=== PATIENT | female | born 1930 | race African-American/Black ===

== ENCOUNTER 2018-12-05 20:30 | Emergency (ER) | payer SELFPAY ==
[~2018-12-05] VITALS: Ht 182.9 cm; Wt 68.0 kg
--- NOTE | 2018-12-05 20:59 | NUR ---
ED Nurse Note: pt walked in c/o pain in back and weakness, pt states she took some muscle relaxant with motrin and helped pain and it went away but came back, pt states she's been having for a while. pt AA&ox4, skin warm and dry, resp even and unlabored on RA, -n/v/d, ambulates w/ steady gait. vss.
[2018-12-05 21:01] VITALS: BP 120/85
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
[2018-12-05 21:30] LABS: BASOPHILS % (AUTO) 0.8 % (0.0-2.0); EOSINOPHILS % (AUTO) 1.5 % (0.0-3.0); HEMATOCRIT 36.8 % (37.0-47.0); HEMOGLOBIN 12.7 G/DL (12.0-16.0); LYMPHOCYTES % (AUTO) 28.3 % (20.0-45.0); MEAN CORPUSCULAR VOLUME 98 FL (80-99); MONOCYTES % (AUTO) 7.4 % (1.0-10.0); PLATELET COUNT 229 K/UL (150-450); RED BLOOD COUNT 3.74 M/UL (4.20-5.40); RED CELL DISTRIBUTION WIDTH 11.7 % (11.6-14.8)
[2018-12-05 21:42] LABS: ANION GAP 5 mmol/L (5-15); BLOOD UREA NITROGEN 10 mg/dL (7-18); CALCIUM 9.2 MG/DL (8.5-10.1); CARBON DIOXIDE 31 MMOL/L (21-32); CHLORIDE 101 MMOL/L (98-107); CREATININE 0.9 MG/DL (0.55-1.30); POTASSIUM 3.8 MMOL/L (3.5-5.1); SODIUM 137 MMOL/L (136-145)
--- NOTE | 2018-12-05 21:48 | Diagnostic Imaging Report ---
EXAM: XR Chest, 1 View CLINICAL HISTORY: PAIN TECHNIQUE: Frontal view of the chest. COMPARISON: none FINDINGS: Lungs: Unremarkable. No consolidation. Pleural space: Unremarkable. No pneumothorax. Heart: Unremarkable. No cardiomegaly. Mediastinum: Unremarkable. Bones/joints: Unremarkable. IMPRESSION: Normal chest x-ray.
[2018-12-05 21:57] LABS: ALANINE AMINOTRANSFERASE 19 U/L (12-78); ALBUMIN 3.6 G/DL (3.4-5.0); ALBUMIN/GLOBULIN RATIO 0.9 (1.0-2.7); ALKALINE PHOSPHATASE 99 U/L (46-116); ASPARTATE AMINO TRANSFERASE 14 U/L (15-37); BILIRUBIN,TOTAL 0.5 MG/DL (0.2-1.0); CKMB 1.1 NG/ML (0.0-3.6); CREATINE KINASE 110 U/L (26-308)
[2018-12-05] MEDS ORDERED: IBUPROFEN600 MG ORAL (22:49)
[2018-12-05] MEDS ORDERED: NORCO 5-325 TA1 EACH ORAL (22:49)
[2018-12-05] MEDS ORDERED: CYCLOBENZAPRINE10 MG ORAL (22:49)
[2018-12-05] MEDS ORDERED: Morphine Sulfate 2mg/ml Inj(IV/IM USE ONLY) ONE (22:50)
[2018-12-05] MEDS ORDERED: LIDODERM700 M1 TOPIC (22:51)
[2018-12-05 22:55] VITALS: BP 128/67
[2018-12-05] MEDS ORDERED: Morphine Sulfate 2mg/ml Inj(IV/IM USE ONLY) IVP ONE (23:00)
--- NOTE | 2018-12-05 23:04 | NUR ---
ED Nurse Note: iv d/c after administration of medication. pt is cleared to be d/c per ERMD, d/c endorsed to VIVIANE lboo for possible reaction of medication.
[2018-12-05 23:33] VITALS: BP 115/67
--- NOTE | 2018-12-05 23:33 | NUR ---
ED Nurse Note: Pt cleared by MD. Gandhi, ambulatory with steady gait. Discharge paperwork and prescriptions provided. Pt verbalized understanding of all instructions. ID and IV band removed. All belongings were taken with patient.
== END 2018-12-05 23:33 | disposition home or self-care (01) ==
LOC: EMR 21:18
DX: R07.9 Chest pain, unspecified (principal); M54.9 Dorsalgia, unspecified; J45.909 Unspecified asthma, uncomplicated
CPT/HCPCS: 36415; 71045; 80053; 82550; 82553; 84484; 85025; 93005; 96374; 96375; 99284; J2270; J2405

== ENCOUNTER 2018-12-09 09:41 | Inpatient (IN) | payer MEDICAID ==
[~2018-12-09] VITALS: Ht 182.9 cm; Wt 71.7 kg
[2018-12-09] VITALS (7 sets, daily range): BP systolic 110–142; BP diastolic 60–79
[~2018-12-09 09:41] MED LIST: CYCLOBENZAPRINE10 MG ORAL; IBUPROFEN600 MG ORAL; LIDODERM700 M1 TOPIC; NORCO 5-325 TA1 EACH ORAL
--- NOTE | 2018-12-09 10:02 | NUR ---
ED Nurse Note: Pt came into the ER w/ complaints of right flank pain x 1 week. Pt is rating the pain a 2/10 right now not radiating. Pt stated that she took motrin to ease her pain. Pt is A + O x4. Ambulatory. Skin warm to touch.
--- NOTE | 2018-12-09 10:17 | Emergency Room Report ---
History of Present Illness General Chief Complaint: Pain Source: Patient Present Illness HPI Patient is a -[place] female brought in by self after increased right- sided flank pain. She reports having increased pain to right flank worse after coughing. She reports having intermittent spasms. She had reportedly been coughing up trace amounts of blood. Patient reports being a smoker. She states she smokes 2 cigars a day. She reports having multiple episodes of trace hemoptysis. Allergies: Coded Allergies: MORPHINE (Verified Allergy, Unknown, 12/09/18) Patient History Past Medical History: see triage record Reviewed Nursing Documentation: PMH: Agreed; PSxH: Agreed Nursing Documentation-PM Past Medical History: No History, Except For Hx Asthma: Yes Review of Systems All Other Systems: negative except mentioned in HPI Physical Exam Vital Signs Date Time Temp Pulse Resp B/P (MAP) Pulse Ox O2 Delivery O2 Flow Rate FiO2 12/09/18 09:47 98.8 82 18 113/69 93 Room Air Sp02 EP Interpretation: reviewed, normal General Appearance: normal inspection, well appearing, no apparent distress, alert, GCS 15 Head: atraumatic ENT: normal ENT inspection, hearing grossly normal, normal voice Neck: normal inspection, full range of motion, supple, no bony tend Respiratory: normal inspection, lungs clear, normal breath sounds, no respiratory distress, no retraction, no wheezing Cardiovascular #1: regular rate, rhythm, no edema Gastrointestinal: normal inspection, normal bowel sounds, non tender, soft, no guarding, no hernia Genitourinary: no CVA tenderness Musculoskeletal: normal inspection, back normal, normal range of motion Neurologic: normal inspection, alert, oriented x3, responsive, precision instrument maker III-XII nml as tested, speech normal Psychiatric: normal inspection, judgement/insight normal, mood/affect normal Skin: normal inspection, normal color, no rash Medical Decision Making Diagnostic Impression: Primary Impression: Bilateral pulmonary embolism Additional Impression: Urinary tract infection ER Course Patient presented for right flank pain and hemoptysis. Differential diagnosis include was not limited to pneumonia, bronchitis, pulmonary embolism, Kinsey's granulomatosis among others. Because of complexity of patient's case laboratory testing and imaging studies were ordered. Laboratory testing was notable for negative troponin. Patient's EKG interpreted by me showed normal sinus rhythm with a rate of [address] or T wave changes. Patient's urinalysis showed evidence of urinary infection. CTA of the chest read by radiology was ordered to patient's hemoptysis. CT showed multiple subsegmental pulmonary embolisms as well as right lower lobe atelectasis. Patient was started on IV anti-biotics as well as given IV heparin. Patient initially presented registering with an age approximately 80 years age. patient's age and Social Security number not consistent with her current age and Social Security number. Patient had similar visit one day prior to arrival. Dr. Al Rosario was contacted for inpatient management due to panel physician Labs Test 12/09/18 10:25 12/09/18 12:05 White Blood Count 8.4 K/UL (4.8-10.8) Red Blood Count 3.76 M/UL (4.20-5.40) Hemoglobin 12.9 G/DL (12.0-16.0) Hematocrit 37.1 % (37.0-47.0) Mean Corpuscular Volume 99 FL (80-99) Mean Corpuscular Hemoglobin 34.3 PG (27.0-31.0) Mean Corpuscular Hemoglobin Concent 34.8 G/DL (32.0-36.0) Red Cell Distribution Width 11.5 % (11.6-14.8) Platelet Count 270 K/UL (150-450) Mean Platelet Volume 5.1 FL (6.5-10.1) Neutrophils (%) (Auto) 60.1 % (45.0-75.0) Lymphocytes (%) (Auto) 29.4 % (20.0-45.0) Monocytes (%) (Auto) 8.4 % (1.0-10.0) Eosinophils (%) (Auto) 1.3 % (0.0-3.0) Basophils (%) (Auto) 0.8 % (0.0-2.0) Urine Color Yellow Urine Appearance Slightly cloudy Urine pH 6 (4.5-8.0) Urine Specific [place] 1.020 (1.005-1.035) Urine Protein 2+ (NEGATIVE) Urine Glucose (UA) Negative (NEGATIVE) Urine Ketones Negative (NEGATIVE) Urine Blood 2+ (NEGATIVE) Urine Nitrite Negative (NEGATIVE) Urine Bilirubin Negative (NEGATIVE) Urine Urobilinogen 8 MG/DL (0.0-1.0) Urine Leukocyte Esterase 2+ (NEGATIVE) Urine RBC 10-15 /HPF (0 - 2) Urine WBC 20-30 /HPF (0 - 2) Urine Squamous Epithelial Cells Many /LPF (NONE/OCC) Urine Bacteria Few /HPF (NONE) Urine Mucus Many /LPF (NONE/OCC) Sodium Level 137 MMOL/L (136-145) Potassium Level 4.3 MMOL/L (3.5-5.1) Chloride Level 101 MMOL/L (98-107) Carbon Dioxide Level 33 MMOL/L (21-32) Anion Gap 3 mmol/L (5-15) Blood Urea Nitrogen 7 mg/dL (7-18) Creatinine 0.8 MG/DL (0.55-1.30) Estimat Glomerular Filtration Rate mL/min (>60) Glucose Level 85 MG/DL (74-106) Calcium Level 9.4 MG/DL (8.5-10.1) Total Bilirubin 0.3 MG/DL (0.2-1.0) Aspartate Amino Transf (AST/SGOT) 11 U/L (15-37) Alanine Aminotransferase (ALT/SGPT) 16 U/L (12-78) Alkaline Phosphatase 88 U/L (46-116) Total Protein 8.2 G/DL (6.4-8.2) Albumin 3.3 G/DL (3.4-5.0) Globulin 4.9 g/dL Albumin/Globulin Ratio 0.7 (1.0-2.7) Urine Opiates Screen Negative (NEGATIVE) Urine Barbiturates Screen Negative (NEGATIVE) Phencyclidine (PCP) Screen Negative (NEGATIVE) Urine Amphetamines Screen Negative (NEGATIVE) Urine Benzodiazepines Screen Negative (NEGATIVE) Urine Cocaine Screen Negative (NEGATIVE) Urine Marijuana (THC) Screen Positive (NEGATIVE) Activated Partial Thromboplast Time 29 SEC (23-33) EKG Diagnostic Results Rate: normal Rhythm: NSR ST Segments: no acute changes Last Vital Signs Date Time Temp Pulse Resp B/P (MAP) Pulse Ox O2 Delivery O2 Flow Rate FiO2 12/09/18 10:04 98.7 78 16 119/79 99 Room Air Status: unchanged Disposition: ADMITTED INPATIENT Asaf High MD Dec 09, 2018 10:17
[2018-12-09] MEDS ORDERED: Isovue-370 150ml vial INJ PRN (10:30)
[2018-12-09 10:40] LABS: APPEARANCE,URINE SLIGHTLY CLOUDY; BILIRUBIN, URINE NEGATIVE (NEGATIVE); COLOR,URINE YELLOW; GLUCOSE, URINE (UA) NEGATIVE (NEGATIVE); KETONES,URINE NEGATIVE (NEGATIVE); LEUKOCYTE ESTERASE ,URINE 2+ (NEGATIVE); NITRITE,URINE NEGATIVE (NEGATIVE); PH,URINE 6 (4.5-8.0); PROTEIN,URINE 2+ (NEGATIVE); UROBILINOGEN,URINE 8 MG/DL (0.0-1.0)
[2018-12-09 10:42] LABS: ANION GAP 3 mmol/L (5-15); BLOOD UREA NITROGEN 7 mg/dL (7-18); CALCIUM 9.4 MG/DL (8.5-10.1); CARBON DIOXIDE 33 MMOL/L (21-32); CHLORIDE 101 MMOL/L (98-107); CREATININE 0.8 MG/DL (0.55-1.30); POTASSIUM 4.3 MMOL/L (3.5-5.1); SODIUM 137 MMOL/L (136-145)
[2018-12-09 10:48] LABS: ALANINE AMINOTRANSFERASE 16 U/L (12-78); ALBUMIN 3.3 G/DL (3.4-5.0); ALBUMIN/GLOBULIN RATIO 0.7 (1.0-2.7); ALKALINE PHOSPHATASE 88 U/L (46-116); ASPARTATE AMINO TRANSFERASE 11 U/L (15-37); BILIRUBIN,TOTAL 0.3 MG/DL (0.2-1.0)
[2018-12-09 10:52] LABS: BASOPHILS % (AUTO) 0.8 % (0.0-2.0); EOSINOPHILS % (AUTO) 1.3 % (0.0-3.0); HEMATOCRIT 37.1 % (37.0-47.0); HEMOGLOBIN 12.9 G/DL (12.0-16.0); LYMPHOCYTES % (AUTO) 29.4 % (20.0-45.0); MEAN CORPUSCULAR VOLUME 99 FL (80-99); MONOCYTES % (AUTO) 8.4 % (1.0-10.0); NEUTROPHILS % (AUTO) 60.1 % (45.0-75.0); PLATELET COUNT 270 K/UL (150-450); RED BLOOD COUNT 3.76 M/UL (4.20-5.40); RED CELL DISTRIBUTION WIDTH 11.5 % (11.6-14.8); WHITE BLOOD COUNT 8.4 K/UL (4.8-10.8)
--- NOTE | 2018-12-09 10:54 | NUR ---
ED Nurse Note: Notified CT of order.
--- NOTE | 2018-12-09 10:56 | NUR ---
ED Nurse Note: Pt went down to CT.
[2018-12-09] MEDS ORDERED: cefTRIAXone 1 GM in NS 55 ML IVPB ONE (11:15)
--- NOTE | 2018-12-09 11:18 | NUR ---
ED Nurse Note: Pt back from CT.
[2018-12-09] MEDS ORDERED: Heparin 25,000u/D5W 500ml 500 ML IV SCH ×2 (12:00→19:45)
[2018-12-09] MEDS ORDERED: Heparin 5000 units/ml inj IV ONE (12:00)
--- NOTE | 2018-12-09 12:03 | Diagnostic Imaging Report ---
Indication: Chest pain Technique: Continuous helical transaxial imaging of the chest was obtained from the thoracic inlet to the upper abdomen during rapid intravenous contrast administration. Arterial phase of enhancement obtained. Coronal 2-D reformats were also obtained and maximum intensity projection images in multiple planes. Study obtained in a Siemens sensation [address] Automatic Exposure Control was utilized. Total Dose length Product (DLP): [address] Dose Index Volume (CTDIvol): 12.62, 25.25, 18.92, 0.17 mGy Comparison: None Findings: There is good opacification of the pulmonary artery. There are multiple filling defects present bilaterally mainly at the segmental and subsegmental levels. In the right lower lobe branch bifurcation there is thrombus extending into the right lower lobe segmental branches. There are also filling defects involving the lingular branch of the left pulmonary artery and right upper lobe branches of the pulmonary artery. The aorta appears normal. The heart is unremarkable. No pleural or pericardial effusion identified. There is a ill-defined right basilar infiltrate versus atelectasis. Pulmonary infarct not excluded. Mild paraseptal blebs demonstrated at the periphery of the upper lobes bilaterally. The visualized part of the upper abdomen is unremarkable. IMPRESSION: Positive study showing bilateral pulmonary emboli as described above. Patchy infiltrate versus atelectasis versus infarct involving the right peripheral lung base. Chronic lung disease with paraseptal bleb formation at the periphery of the upper lobes. Critical value communication. Findings were discussed via telephone with Dr. High in the emergency department 11:55 AM, 12/09/2018. The CT scanner at [facility] is accredited by the [employer] and the scans are performed using dose optimization techniques as appropriate to a performed exam including Automatic Exposure control.
--- NOTE | 2018-12-09 15:01 | NUR ---
ED Nurse Note: Tried giving report, RN Fe stated that they are not ready to receive pt.
--- NOTE | 2018-12-09 15:35 | NUR ---
BED ASSIGNED AT 1345 FOR PATIENT TO GO TO ROOM AT 1430 . BUT PER FE RN THEY CANOT TAKE PATIENT DUE TO NO STAFF AVILABLE WILL CALL BACK WHEN THEY ARE AVILABLE TO TAKE REPORT
--- NOTE | 2018-12-09 15:41 | NUR ---
ED Nurse Note: Gave telephone report to VIVIANE Walker.
--- NOTE | 2018-12-09 15:43 | NUR ---
ED Nurse Note: Pt transferred up to tele unit. No acute distress noted. Left ER w/ all belongings.
--- NOTE | 2018-12-09 17:57 | NUR ---
ADMITTING NOTES: Pt arrive to the unit from ED, pt states she lives in her car. Pt was complaining of breathing problems, SOB, Pt is Ox4 cooperative, pt seems to have psychiatric, see things that are not there, pt has cell phone and cisco network engineer with her, (Iphone 6 black with purple case with cisco network engineer, pt belongings with her, pt has #$33. pt states she will keep her medications with her (IBU 600mg, methocarbomol 750mg, Cephalexin 500mg, cyclobenzaprine 10mg, norco 10/325, albuteral, and oseltanir 75mg), Charge nurse notified. [facility] was called and provided admission orders, to consult Denise,
--- NOTE | 2018-12-09 19:05 | NUR ---
HAND-OFF: Report given to Mayra Costa.
--- NOTE | 2018-12-09 19:05 | NUR ---
NURSE NOTES: Received report from Joe De Jesus RN. Patient is awake in bed, A/O x4. No s/s of acute distress at this time. Saturating well on room air. Left AC 20g IV intact and patent, running heparin drip. Bed locked in lowest position with side rails up x2. Call light left within reach. Will continue to monitor.
--- NOTE | 2018-12-09 19:25 | NUR ---
NURSE NOTES: Received new order from Dr. Nadia MD regarding heparin drip - pharmacy to dose. Noted and carried out.
[2018-12-09] MEDS ORDERED: Heparin 5000 units/ml inj IV SCH (20:00)
[2018-12-09] MEDS ORDERED: Albuterol/Ipratropium 3ml neb HHN PRN (21:45)
--- NOTE | 2018-12-09 23:10 | NUR ---
NURSE NOTES: Dr. Charlotte MD made aware of current d-dimer and ABG results. No new orders at this time.
[2018-12-10] VITALS: BP 115/72
[2018-12-10] MEDS ORDERED: Heparin 25,000u/D5W 500ml 500 ML IV SCH ×2 (02:30→09:34)
--- NOTE | 2018-12-10 02:47 | NUR ---
NURSE NOTES: Reported timed ptt 105 to [place] pharmacistPatricia. New order received. Noted and carried out.
[2018-12-10 04:00] VITALS: BP 113/72
[2018-12-10 05:46] LABS: BASOPHILS % (AUTO) 0.5 % (0.0-2.0); EOSINOPHILS % (AUTO) 2.3 % (0.0-3.0); HEMATOCRIT 38.6 % (37.0-47.0); HEMOGLOBIN 13.2 G/DL (12.0-16.0); LYMPHOCYTES % (AUTO) 49.8 % (20.0-45.0); MEAN CORPUSCULAR VOLUME 100 FL (80-99); MONOCYTES % (AUTO) 5.2 % (1.0-10.0); NEUTROPHILS % (AUTO) 42.1 % (45.0-75.0); PLATELET COUNT 272 K/UL (150-450); RED BLOOD COUNT 3.85 M/UL (4.20-5.40); RED CELL DISTRIBUTION WIDTH 11.7 % (11.6-14.8); WHITE BLOOD COUNT 8.1 K/UL (4.8-10.8)
[2018-12-10 06:06] LABS: ALANINE AMINOTRANSFERASE 17 U/L (12-78); ALBUMIN 3.2 G/DL (3.4-5.0); ALBUMIN/GLOBULIN RATIO 0.7 (1.0-2.7); ALKALINE PHOSPHATASE 83 U/L (46-116); ANION GAP 7 mmol/L (5-15); ASPARTATE AMINO TRANSFERASE 18 U/L (15-37); BILIRUBIN,TOTAL 0.3 MG/DL (0.2-1.0); BLOOD UREA NITROGEN 6 mg/dL (7-18); CALCIUM 9.5 MG/DL (8.5-10.1); CARBON DIOXIDE 29 MMOL/L (21-32); CHLORIDE 102 MMOL/L (98-107); CREATININE 0.8 MG/DL (0.55-1.30); POTASSIUM 3.7 MMOL/L (3.5-5.1); SODIUM 138 MMOL/L (136-145)
--- NOTE | 2018-12-10 06:51 | Cardiac Electrophysiology PN ---
Subjective Subjective [id number] Objective Last 24 Hour Vital Signs Date Time Temp Pulse Resp B/P (MAP) Pulse Ox O2 Delivery O2 Flow Rate FiO2 12/10/18 04:00 98.9 57 19 113/72 (86) 92 12/10/18 03:30 78 12/10/18 00:00 98.9 67 19 115/72 (86) 92 12/09/18 23:34 63 12/09/18 21:00 Room Air 12/09/18 20:00 99.2 66 19 114/70 (85) 94 12/09/18 19:24 75 12/09/18 17:55 98.2 72 18 142/70 (94) 98 72 12/09/18 16:17 Room Air 12/09/18 16:00 98.2 72 18 142/70 (94) 98 72 12/09/18 15:42 98.1 73 27 110/60 97 Room Air 12/09/18 15:03 98.3 77 22 110/65 97 Room Air 12/09/18 13:00 98.3 69 18 110/60 96 Room Air 12/09/18 12:00 98.5 75 20 110/70 99 Room Air 12/09/18 10:04 98.7 78 16 119/79 99 Room Air 12/09/18 09:47 98.8 82 18 113/69 93 Room Air Intake and Output 12/09/18 12/10/18 19:00 07:00 Intake Total 550 ml 442.34183 ml Balance 550 ml 442.52874 ml Intake Oral 500 ml 240 ml IV Total 50 ml 202.91885 ml # Voids 2 3 Laboratory Tests Test 12/09/18 10:25 12/09/18 12:05 12/09/18 19:15 12/09/18 22:10 White Blood Count 8.4 K/UL (4.8-10.8) Red Blood Count 3.76 M/UL (4.20-5.40) L Hemoglobin 12.9 G/DL (12.0-16.0) Hematocrit 37.1 % (37.0-47.0) Mean Corpuscular Volume 99 FL (80-99) Mean Corpuscular Hemoglobin 34.3 PG (27.0-31.0) H Mean Corpuscular Hemoglobin Concent 34.8 G/DL (32.0-36.0) Red Cell Distribution Width 11.5 % (11.6-14.8) L Platelet Count 270 K/UL (150-450) Mean Platelet Volume 5.1 FL (6.5-10.1) L Neutrophils (%) (Auto) 60.1 % (45.0-75.0) Lymphocytes (%) (Auto) 29.4 % (20.0-45.0) Monocytes (%) (Auto) 8.4 % (1.0-10.0) Eosinophils (%) (Auto) 1.3 % (0.0-3.0) Basophils (%) (Auto) 0.8 % (0.0-2.0) Urine Color Yellow Urine Appearance Slightly cloudy Urine pH 6 (4.5-8.0) Urine Specific [place] 1.020 (1.005-1.035) Urine Protein 2+ (NEGATIVE) H Urine Glucose (UA) Negative (NEGATIVE) Urine Ketones Negative (NEGATIVE) Urine Blood 2+ (NEGATIVE) H Urine Nitrite Negative (NEGATIVE) Urine Bilirubin Negative (NEGATIVE) Urine Urobilinogen 8 MG/DL (0.0-1.0) H Urine Leukocyte Esterase 2+ (NEGATIVE) H Urine RBC 10-15 /HPF (0 - 2) H Urine WBC 20-30 /HPF (0 - 2) H Urine Squamous Epithelial Cells Many /LPF (NONE/OCC) H Urine Bacteria Few /HPF (NONE) Urine Mucus Many /LPF (NONE/OCC) H Sodium Level 137 MMOL/L (136-145) Potassium Level 4.3 MMOL/L (3.5-5.1) Chloride Level 101 MMOL/L (98-107) Carbon Dioxide Level 33 MMOL/L (21-32) H Anion Gap 3 mmol/L (5-15) L Blood Urea Nitrogen 7 mg/dL (7-18) Creatinine 0.8 MG/DL (0.55-1.30) Estimat Glomerular Filtration Rate mL/min (>60) Glucose Level 85 MG/DL (74-106) Calcium Level 9.4 MG/DL (8.5-10.1) Total Bilirubin 0.3 MG/DL (0.2-1.0) Aspartate Amino Transf (AST/SGOT) 11 U/L (15-37) L Alanine Aminotransferase (ALT/SGPT) 16 U/L (12-78) Alkaline Phosphatase 88 U/L (46-116) Total Protein 8.2 G/DL (6.4-8.2) Albumin 3.3 G/DL (3.4-5.0) L Globulin 4.9 g/dL Albumin/Globulin Ratio 0.7 (1.0-2.7) L Urine Opiates Screen Negative (NEGATIVE) Urine Barbiturates Screen Negative (NEGATIVE) Phencyclidine (PCP) Screen Negative (NEGATIVE) Urine Amphetamines Screen Negative (NEGATIVE) Urine Benzodiazepines Screen Negative (NEGATIVE) Urine Cocaine Screen Negative (NEGATIVE) Urine Marijuana (THC) Screen Positive (NEGATIVE) H Activated Partial Thromboplast Time 29 SEC (23-33) 43 SEC (23-33) H D-Dimer 3.91 mg/L FEU (0.00-0.49) H Troponin I 0.000 ng/mL (0.000-0.056) Test 12/09/18 22:49 12/10/18 01:50 12/10/18 04:00 Arterial Blood pH 7.452 (7.350-7.450) Arterial Blood Partial Pressure CO2 41.8 mmHg (35.0-45.0) Arterial Blood Partial Pressure O2 67.4 mmHg (75.0-100.0) L Arterial Blood HCO3 28.5 mmol/L (22.0-26.0) H Arterial Blood Oxygen Saturation 93.1 % (95-100) L Arterial Blood Base Excess 4.2 (-2-2) H Jovani Test Positive Activated Partial Thromboplast Time 105 SEC (23-33) H White Blood Count 8.1 K/UL (4.8-10.8) Red Blood Count 3.85 M/UL (4.20-5.40) L Hemoglobin 13.2 G/DL (12.0-16.0) Hematocrit 38.6 % (37.0-47.0) Mean Corpuscular Volume 100 FL (80-99) H Mean Corpuscular Hemoglobin 34.4 PG (27.0-31.0) H Mean Corpuscular Hemoglobin Concent 34.2 G/DL (32.0-36.0) Red Cell Distribution Width 11.7 % (11.6-14.8) Platelet Count 272 K/UL (150-450) Mean Platelet Volume 4.0 FL (6.5-10.1) L Neutrophils (%) (Auto) 42.1 % (45.0-75.0) L Lymphocytes (%) (Auto) 49.8 % (20.0-45.0) H Monocytes (%) (Auto) 5.2 % (1.0-10.0) Eosinophils (%) (Auto) 2.3 % (0.0-3.0) Basophils (%) (Auto) 0.5 % (0.0-2.0) Sodium Level 138 MMOL/L (136-145) Potassium Level 3.7 MMOL/L (3.5-5.1) Chloride Level 102 MMOL/L (98-107) Carbon Dioxide Level 29 MMOL/L (21-32) Anion Gap 7 mmol/L (5-15) Blood Urea Nitrogen 6 mg/dL (7-18) L Creatinine 0.8 MG/DL (0.55-1.30) Estimat Glomerular Filtration Rate > 60 mL/min (>60) Glucose Level 110 MG/DL (74-106) H Calcium Level 9.5 MG/DL (8.5-10.1) Total Bilirubin 0.3 MG/DL (0.2-1.0) Aspartate Amino Transf (AST/SGOT) 18 U/L (15-37) Alanine Aminotransferase (ALT/SGPT) 17 U/L (12-78) Alkaline Phosphatase 83 U/L (46-116) Total Protein 8.1 G/DL (6.4-8.2) Albumin 3.2 G/DL (3.4-5.0) L Globulin 4.9 g/dL Albumin/Globulin Ratio 0.7 (1.0-2.7) L Microbiology Date/Time Source Procedure Growth Status 12/09/18 10:25 Urine,Clean Catch Urine Culture - Preliminary NO GROWTH Resulted 12/09/18 13:00 Rectum Received Julio Alfaro MD December 10, 2018 06:50
--- NOTE | 2018-12-10 07:45 | NUR ---
Received report from Hilda/RN, Patient is awake and alert, eating breakfast on bed, Heparin Drip running at 20 unit on left AC, No acute distress at this time. Bed in low position, Call light within reach. Will continue plan of care.
--- NOTE | 2018-12-10 07:45 | NUR ---
HAND-OFF: Report given to eBrnard Tilley RN.
[2018-12-10 08:00] VITALS: BP 129/74
[2018-12-10] MEDS ORDERED: Heparin 5000 units/ml inj IV SCH (09:33)
--- NOTE | 2018-12-10 10:05 | NUR ---
*-* INSURANCE *-* ALL AVAILABLE CLINICALS HAVE BEEN FAXED TO: [employer] NCM: JULIO CÉSAR P- [phone] [phone]
--- NOTE | 2018-12-10 11:28 | NUR ---
CASE MANAGEMENT:REVIEW 53 YR OLD FEMALE PRESENTED TO ER CC: RT FLANK PAIN WHEN SHE BREATHES SI: BILATERAL PULMONARY EMBOLISM. UTI 98.7 82 18 113/69 93% ON RA D-DIMER+3.91 APTT+43 PH+7.45 PO2-67.4 HCO3+28.5 IS: HEPARIN GTT IV ROCEPHIN CTA CHEST : TO TELEMETRY INTERQUAL CRITERIA MET
[2018-12-10] MEDS: cefTRIAXone 1 GM in D5W 55 ML IVPB SCH (11:57)
[2018-12-10 12:00] VITALS: BP 120/76
--- NOTE | 2018-12-10 13:05 | Initial Psychiatric Evaluation ---
Psychiatry Consultation Psychiatry Consultation Chief Complaint: Pain History of Present Illness: 53-year-old female admitted for right-sided flank pain, coughing with small amount of blood the pt has hx of depression and anxiety.during the eval the pt was superficial and guarded. the pt has anxiety and irritable she denied si/hi/ Allergies: Coded Allergies: MORPHINE (Verified Allergy, Unknown, 12/09/18) Past Psychiatric History: denied Medical History: non significant Substance Abuse History: denied urine tox post for mj Medication History Scheduled Cyclobenzaprine Hcl* (Flexeril*), 10 MG ORAL THREE TIMES A DAY Lidocaine (Lidoderm), 1 PATCH TOPIC DAILY Scheduled PRN Hydrocodone Bit/Acetaminophen 5-325* ([place] 5-325*), 1 TAB ORAL Q6H PRN for For Pain Ibuprofen* (Motrin*), 600 MG ORAL Q8H PRN for For Pain Patient History History Provided By: Patient, Medical Record, PMD Objective Data Height (Feet): 6 Weight (Pounds): 158 Appearance: no abnormalities noted Behavior Mannerisms: good eye contact Affect: blunted Mood: depressed, anxious Thought Process: goal-directed Suicidal Ideation: not present Assessment/Plan Problem List: (1) Cannabis abuse ICD Codes: F12.10 - Cannabis abuse, uncomplicated SNOMED: [id number] Status: unchanged Assessment/Plan: the pt is reluctant to take any meds provided ro/st Diagnosis [place] I: anxiety Breann Manuel MD December 10, 2018 13:04
--- NOTE | 2018-12-10 13:44 | Consultation ---
Consult Note Assessment/Plan DICT # [id number] Victor Manuel Porter MD December 10, 2018 13:44
--- NOTE | 2018-12-10 14:27 | Consultation ---
History of Present Illness General Chief Complaint: Pain Present Illness Allergies: Coded Allergies: MORPHINE (Verified Allergy, Unknown, 12/09/18) Medication History Scheduled Cyclobenzaprine Hcl* (Flexeril*), 10 MG ORAL THREE TIMES A DAY Lidocaine (Lidoderm), 1 PATCH TOPIC DAILY Scheduled PRN Hydrocodone Bit/Acetaminophen 5-325* ([place] 5-325*), 1 TAB ORAL Q6H PRN for For Pain Ibuprofen* (Motrin*), 600 MG ORAL Q8H PRN for For Pain Patient History Healthcare decision maker warren doty daughter Resuscitation status Full Code Advanced Directive on File No Physical Exam Last 24 Hour Vital Signs Date Time Temp Pulse Resp B/P (MAP) Pulse Ox O2 Delivery O2 Flow Rate FiO2 12/10/18 08:10 68 19 Room Air 21 12/10/18 04:00 98.9 57 19 113/72 (86) 92 12/10/18 03:30 78 12/10/18 00:00 98.9 67 19 115/72 (86) 92 12/09/18 23:34 63 12/09/18 21:00 Room Air 12/09/18 20:00 99.2 66 19 114/70 (85) 94 12/09/18 19:24 75 12/09/18 17:55 98.2 72 18 142/70 (94) 98 72 12/09/18 16:17 Room Air 12/09/18 16:00 98.2 72 18 142/70 (94) 98 72 12/09/18 15:42 98.1 73 27 110/60 97 Room Air 12/09/18 15:03 98.3 77 22 110/65 97 Room Air Intake and Output 12/09/18 12/10/18 18:59 06:59 Intake Total 550 ml 542.43264 ml Balance 550 ml 542.00230 ml Intake Oral 500 ml 240 ml IV Total 50 ml 302.34318 ml # Voids 2 3 Laboratory Tests Test 12/09/18 19:15 12/09/18 22:10 12/09/18 22:49 12/10/18 01:50 Activated Partial Thromboplast Time 43 SEC (23-33) H 105 SEC (23-33) H D-Dimer 3.91 mg/L FEU (0.00-0.49) H Troponin I 0.000 ng/mL (0.000-0.056) Arterial Blood pH 7.452 (7.350-7.450) Arterial Blood Partial Pressure CO2 41.8 mmHg (35.0-45.0) Arterial Blood Partial Pressure O2 67.4 mmHg (75.0-100.0) L Arterial Blood HCO3 28.5 mmol/L (22.0-26.0) H Arterial Blood Oxygen Saturation 93.1 % (95-100) L Arterial Blood Base Excess 4.2 (-2-2) H Jovani Test Positive Test 12/10/18 04:00 12/10/18 08:35 White Blood Count 8.1 K/UL (4.8-10.8) Red Blood Count 3.85 M/UL (4.20-5.40) L Hemoglobin 13.2 G/DL (12.0-16.0) Hematocrit 38.6 % (37.0-47.0) Mean Corpuscular Volume 100 FL (80-99) H Mean Corpuscular Hemoglobin 34.4 PG (27.0-31.0) H Mean Corpuscular Hemoglobin Concent 34.2 G/DL (32.0-36.0) Red Cell Distribution Width 11.7 % (11.6-14.8) Platelet Count 272 K/UL (150-450) Mean Platelet Volume 4.0 FL (6.5-10.1) L Neutrophils (%) (Auto) 42.1 % (45.0-75.0) L Lymphocytes (%) (Auto) 49.8 % (20.0-45.0) H Monocytes (%) (Auto) 5.2 % (1.0-10.0) Eosinophils (%) (Auto) 2.3 % (0.0-3.0) Basophils (%) (Auto) 0.5 % (0.0-2.0) Sodium Level 138 MMOL/L (136-145) Potassium Level 3.7 MMOL/L (3.5-5.1) Chloride Level 102 MMOL/L (98-107) Carbon Dioxide Level 29 MMOL/L (21-32) Anion Gap 7 mmol/L (5-15) Blood Urea Nitrogen 6 mg/dL (7-18) L Creatinine 0.8 MG/DL (0.55-1.30) Estimat Glomerular Filtration Rate > 60 mL/min (>60) Glucose Level 110 MG/DL (74-106) H Calcium Level 9.5 MG/DL (8.5-10.1) Total Bilirubin 0.3 MG/DL (0.2-1.0) Aspartate Amino Transf (AST/SGOT) 18 U/L (15-37) Alanine Aminotransferase (ALT/SGPT) 17 U/L (12-78) Alkaline Phosphatase 83 U/L (46-116) Total Protein 8.1 G/DL (6.4-8.2) Albumin 3.2 G/DL (3.4-5.0) L Globulin 4.9 g/dL Albumin/Globulin Ratio 0.7 (1.0-2.7) L Activated Partial Thromboplast Time 39 SEC (23-33) H Height (Feet): 6 Weight (Pounds): 158 Medications Current Medications Medications (Trade) Dose Ordered Sig/Lucero Route PRN Reason Start Time Stop Time Status Last Admin Dose Admin Albuterol/ Ipratropium (Albuterol/ Ipratropium) 3 ml Q4H PRN HHN Shortness of Breath 12/09/18 21:45 12/14/18 21:44 Ceftriaxone Sodium 1 gm/ Dextrose 55 ml @ 110 mls/hr Q24H IVPB 12/10/18 11:00 12/17/18 10:59 12/10/18 11:57 Heparin Sodium/ Dextrose 500 ml @ 34.401 mls/ hr ADJUST PER PROTOCOL IV 12/10/18 09:34 01/09/19 09:33 12/10/18 10:37 Iopamidol (Isovue-370 150ml) 150 ml NOW PRN INJ Radiology Procedure 12/09/18 10:30 12/11/18 10:20 Nicotine (Nicoderm) 1 patch Q24H TDERMAL 12/10/18 14:00 01/09/19 13:59 Assessment/Plan Assessment/Plan: Hematology Consultation REQ MD: Juventino Melendez Chief Complaint: Pain RFC: Hypercoagulable disorder evaluation DOS: 12/10/18 ID Patient is a pleasant 53y old -Martiniquais female brought in by self after increased right-sided flank pain. She reports having increased pain to right flank worse after coughing. She reports having intermittent spasms. She had reportedly been coughing up trace amounts of blood. Patient reports being a smoker. She states she smokes 2 cigars a day. She reports having multiple episodes of trace hemoptysis. She was noted to have pe bilaterally on cta Coded Allergies: MORPHINE (Verified Allergy, Unknown, 12/09/18) Past Medical History: see triage record Reviewed Nursing Documentation: PMH: Agreed; PSxH: Agreed Past Medical History: No History, Except For Hx Asthma: Yes Review of Systems: negative except mentioned in HPI PE Vital Signs Date Time Temp Pulse Resp B/P (MAP) Pulse Ox O2 Delivery O2 Flow Rate FiO2 12/09/18 09:47 98.8 82 18 113/69 93 Room Air Sp02 EP Interpretation: reviewed, normal General Appearance: normal inspection, well appearing, GCS 15 Head: atraumatic ENT: normal ENT inspection, hearing grossly normal Neck: normal inspection, full range of motion, supple, no bony tend Respiratory: normal inspection, lungs clear, normal breath sounds Cardiovascular: regular rate, rhythm, no edema Gastrointestinal: normal inspection, normal BSs Genitourinary: no CVA tenderness Msk: normal inspection, back normal, nml rom Neurologic: normal inspection, alert, oriented x3, responsive Psychiatric: normal inspection, judgement/insight normal Skin: normal inspection, normal color, no rash Laboratory Tests Test 12/09/18 19:15 12/09/18 22:10 12/09/18 22:49 12/10/18 01:50 Activated Partial Thromboplast Time 43 SEC (23-33) H 105 SEC (23-33) H D-Dimer 3.91 mg/L FEU (0.00-0.49) H Troponin I 0.000 ng/mL (0.000-0.056) Arterial Blood pH 7.452 (7.350-7.450) Arterial Blood Partial Pressure CO2 41.8 mmHg (35.0-45.0) Arterial Blood Partial Pressure O2 67.4 mmHg (75.0-100.0) L Arterial Blood HCO3 28.5 mmol/L (22.0-26.0) H Arterial Blood Oxygen Saturation 93.1 % (95-100) L Arterial Blood Base Excess 4.2 (-2-2) H Jovani Test Positive Test 12/10/18 04:00 12/10/18 08:35 White Blood Count 8.1 K/UL (4.8-10.8) Red Blood Count 3.85 M/UL (4.20-5.40) L Hemoglobin 13.2 G/DL (12.0-16.0) Hematocrit 38.6 % (37.0-47.0) Mean Corpuscular Volume 100 FL (80-99) H Mean Corpuscular Hemoglobin 34.4 PG (27.0-31.0) H Mean Corpuscular Hemoglobin Concent 34.2 G/DL (32.0-36.0) Red Cell Distribution Width 11.7 % (11.6-14.8) Platelet Count 272 K/UL (150-450) Mean Platelet Volume 4.0 FL (6.5-10.1) L Neutrophils (%) (Auto) 42.1 % (45.0-75.0) L Lymphocytes (%) (Auto) 49.8 % (20.0-45.0) H Monocytes (%) (Auto) 5.2 % (1.0-10.0) Eosinophils (%) (Auto) 2.3 % (0.0-3.0) Basophils (%) (Auto) 0.5 % (0.0-2.0) Sodium Level 138 MMOL/L (136-145) Potassium Level 3.7 MMOL/L (3.5-5.1) Chloride Level 102 MMOL/L (98-107) Carbon Dioxide Level 29 MMOL/L (21-32) Anion Gap 7 mmol/L (5-15) Blood Urea Nitrogen 6 mg/dL (7-18) L Creatinine 0.8 MG/DL (0.55-1.30) Estimat Glomerular Filtration Rate > 60 mL/min (>60) Glucose Level 110 MG/DL (74-106) H Calcium Level 9.5 MG/DL (8.5-10.1) Total Bilirubin 0.3 MG/DL (0.2-1.0) Aspartate Amino Transf (AST/SGOT) 18 U/L (15-37) Alanine Aminotransferase (ALT/SGPT) 17 U/L (12-78) Alkaline Phosphatase 83 U/L (46-116) Total Protein 8.1 G/DL (6.4-8.2) Albumin 3.2 G/DL (3.4-5.0) L Globulin 4.9 g/dL Albumin/Globulin Ratio 0.7 (1.0-2.7) L Activated Partial Thromboplast Time 39 SEC (23-33) H Current Medications Medications (Trade) Dose Ordered Sig/Lucero Route PRN Reason Start Time Stop Time Status Last Admin Dose Admin Albuterol/ Ipratropium (Albuterol/ Ipratropium) 3 ml Q4H PRN HHN Shortness of Breath 12/09/18 21:45 12/14/18 21:44 Ceftriaxone Sodium 1 gm/ Dextrose 55 ml @ 110 mls/hr Q24H IVPB 12/10/18 11:00 12/17/18 10:59 12/10/18 11:57 Heparin Sodium/ Dextrose 500 ml @ 34.401 mls/ hr ADJUST PER PROTOCOL IV 12/10/18 09:34 01/09/19 09:33 12/10/18 10:37 Iopamidol (Isovue-370 150ml) 150 ml NOW PRN INJ Radiology Procedure 12/09/18 10:30 12/11/18 10:20 Nicotine (Nicoderm) 1 patch Q24H TDERMAL 12/10/18 14:00 01/09/19 13:59 Test 12/09/18 10:25 12/09/18 12:05 White Blood Count 8.4 K/UL (4.8-10.8) Red Blood Count 3.76 M/UL (4.20-5.40) Hemoglobin 12.9 G/DL (12.0-16.0) Hematocrit 37.1 % (37.0-47.0) Mean Corpuscular Volume 99 FL (80-99) Mean Corpuscular Hemoglobin 34.3 PG (27.0-31.0) Mean Corpuscular Hemoglobin Concent 34.8 G/DL (32.0-36.0) Red Cell Distribution Width 11.5 % (11.6-14.8) Platelet Count 270 K/UL (150-450) Mean Platelet Volume 5.1 FL (6.5-10.1) Neutrophils (%) (Auto) 60.1 % (45.0-75.0) Lymphocytes (%) (Auto) 29.4 % (20.0-45.0) Monocytes (%) (Auto) 8.4 % (1.0-10.0) Eosinophils (%) (Auto) 1.3 % (0.0-3.0) Basophils (%) (Auto) 0.8 % (0.0-2.0) Urine Color Yellow Urine Appearance Slightly cloudy Urine pH 6 (4.5-8.0) Urine Specific [place] 1.020 (1.005-1.035) Urine Protein 2+ (NEGATIVE) Urine Glucose (UA) Negative (NEGATIVE) Urine Ketones Negative (NEGATIVE) Urine Blood 2+ (NEGATIVE) Urine Nitrite Negative (NEGATIVE) Urine Bilirubin Negative (NEGATIVE) Urine Urobilinogen 8 MG/DL (0.0-1.0) Urine Leukocyte Esterase 2+ (NEGATIVE) Urine RBC 10-15 /HPF (0 - 2) Urine WBC 20-30 /HPF (0 - 2) Urine Squamous Epithelial Cells Many /LPF (NONE/OCC) Urine Bacteria Few /HPF (NONE) Urine Mucus Many /LPF (NONE/OCC) Sodium Level 137 MMOL/L (136-145) Potassium Level 4.3 MMOL/L (3.5-5.1) Chloride Level 101 MMOL/L (98-107) Carbon Dioxide Level 33 MMOL/L (21-32) Anion Gap 3 mmol/L (5-15) Blood Urea Nitrogen 7 mg/dL (7-18) Creatinine 0.8 MG/DL (0.55-1.30) Estimat Glomerular Filtration Rate mL/min (>60) Glucose Level 85 MG/DL (74-106) Calcium Level 9.4 MG/DL (8.5-10.1) Total Bilirubin 0.3 MG/DL (0.2-1.0) Aspartate Amino Transf (AST/SGOT) 11 U/L (15-37) Alanine Aminotransferase (ALT/SGPT) 16 U/L (12-78) Alkaline Phosphatase 88 U/L (46-116) Total Protein 8.2 G/DL (6.4-8.2) Albumin 3.3 G/DL (3.4-5.0) Globulin 4.9 g/dL Albumin/Globulin Ratio 0.7 (1.0-2.7) Urine Opiates Screen Negative (NEGATIVE) Urine Barbiturates Screen Negative (NEGATIVE) Phencyclidine (PCP) Screen Negative (NEGATIVE) Urine Amphetamines Screen Negative (NEGATIVE) Urine Benzodiazepines Screen Negative (NEGATIVE) Urine Cocaine Screen Negative (NEGATIVE) Urine Marijuana (THC) Screen Positive (NEGATIVE) Activated Partial Thromboplast Time 29 SEC (23-33) Assessment and Recs: # Bilateral pulmonary embolism as noted on imaging of cta, provoking factor doesn't appear to be consistent with any recent immobility, has never had clots , no hx of hypercoag disorder in the family, no history of recent travel either --> in this scenario, must rule out dvt as well as 2decho to rule out heart strain --> begin anticaogulation with heparin gtt and transition to a noac, or coumadin goal 2-3 inr --> obtain tumor markers --> as an outpatient can f/u in the office and obtain cancer screening and ct imagingas wellto r/o malignancy --> at this bruno,e, recommend anticoag for total of 3 months # Anemia of chronic disease due to underlying chronic medical issues, multifactorial --> Anemia workup has been ordered, rule out gi bleed --> No evidence of hemolysis is noted, peripheral smear has been reviewed --> hgb goal is >7 # Urinary tract infection s/p antibiotics that have been started # Marijuana use as per utox # Psych disorder as per psych The timing of this note does not necessarily reflect the time of the patient was seen. Greatly appreciate consultation! Arnold Zuniga MD December 10, 2018 14:27
--- NOTE | 2018-12-10 14:55 | Diagnostic Imaging Report ---
APPROVED REPORT CPT Code: 17708 Present Symptoms Comments: Screening RIGHT LEG: Venous imaging reveals a patent deep venous system. There is no evidence of thrombus within the femoral, popliteal or tibial segments. Doppler indicates normal spontaneous flow within these segments. LEFT LEG: Venous imaging reveals acute thrombus in the popliteal and one of the paired peroneal veins. Imaging also reveals patency of the common femoral, and calf veins (posterior tibial and anterior). Greater saphenous vein also within normal limits. VIVIANE Iqbal was informed at 0900 hours.
[2018-12-10 16:00] VITALS: BP 123/78
--- NOTE | 2018-12-10 16:25 | NUR ---
CARDIOLOGY : 2-D ECHOCARDIOGRAM REPORT by paintless dent repair technician Normal left ventricular chamber size, systolic function and wall motion . Left ventricular ejection fraction estimated to be 60 -65%. Trace mitral regurgitation. Mild to moderate tricuspid regurgitation. IVC at size 2.0 cm with physiologic collapse.
[2018-12-10 17:27] LABS: INR 1.1 (0.9-1.1)
--- NOTE | 2018-12-10 18:00 | Consultation ---
DATE OF CONSULTATION: 12/10/2018 INFECTIOUS DISEASE CONSULTATION CONSULTING PHYSICIAN: Chris Prince M.D. PRIMARY ATTENDING PHYSICIAN: Al Jauregui M.D. REASON FOR CONSULT: Pyuria, rule out UTI. HISTORY OF PRESENT ILLNESS: This is a 53-year-old female admitted yesterday from home. She is complaining of right-sided flank pain, coughing with small amount of blood in it. The patient states that she had a previous problem and came to the ER two times, one was getting treated for UTI, the next time on 12/05/2018 and discharged with diagnosis of costochondritis. This time, she had a CT angiogram of the chest that showed bilateral pulmonary emboli and also the left leg DVT. PAST MEDICAL HISTORY: Asthma. ALLERGIES: Allergic to morphine. MEDICATIONS: Getting ceftriaxone, heparin, albuterol and ipratropium inhaler. SOCIAL HISTORY: Smokes cigars few daily. Smokes marijuana. Denies other drugs or alcohol abuse. Single, has three daughters. Says that she is active and does exercise. FAMILY HISTORY: Coronary artery disease in family, but there is no history of DVT or pulmonary emboli. REVIEW OF SYSTEMS: No fever. No chills. Occasional coughing and chest pain getting better. No nausea. No vomiting. No diarrhea. No significant shortness of breath. No shortness of breath on exertion. No dysuria. PHYSICAL EXAMINATION: VITAL SIGNS: Temperature 98.9, afebrile since admission, pulse 68, and blood pressure 113/72. GENERAL APPEARANCE: No acute distress. Seems to be thin. HEAD AND NECK: [place] conjunctivae. No oral lesion. HEART: S1, S2. Regular. LUNGS: Clear. ABDOMEN: Soft and nontender. EXTREMITIES: No significant edema. NEUROLOGIC: Awake, alert, and oriented. PSYCHIATRIC: Maybe delusional. LABORATORY DATA: PO2 on blood gas is 67.4, pCO2 is 41.8. Sodium 138, potassium 3.7, chloride 102, bicarbonate 29, BUN 6, and creatinine 0.8. Glucose 110. Urine toxicology was positive for THC. UA was positive for rbc's of 10 to 15, wbc's of 20 to 30, and 2+ blood. Urine culture so far no growth. CT angiogram of chest showed bilateral pulmonary emboli, patchy infiltrates versus atelectasis versus infarcts involving the right peripheral lung base, chronic lung disease. IMPRESSION: Pyuria and urinary tract infection. The patient has chronic obstructive pulmonary disease, is an active smoker, has DVT of left leg, has bilateral pulmonary emboli, and has hypoxemia. RECOMMENDATION: We will continue ceftriaxone for now. If the cultures remain negative, we will stop ceftriaxone soon. At the end of my exam, I thank Dr. Jauregui for involving me in the care of this patient. Chris Prince M.D. DR: ALYSA JOB#: [id number] CC: MARIA T
--- NOTE | 2018-12-10 18:15 | Consultation ---
DATE OF CONSULTATION: 12/10/2018 NOTE: "POOR AUDIO QUALITY" CARDIOLOGY CONSULTATION CONSULTING PHYSICIAN: Julio Alfaro M.D. REFERRING PHYSICIAN: Al Jauregui M.D. REASON FOR CONSULTATION: Shortness of breath and pulmonary embolism. HISTORY OF PRESENT ILLNESS: The patient is a 53-year-old lady who presented to the emergency room with right flank pain and hemoptysis. The patient underwent CT of the chest that showed multiple segmental and subsegmental pulmonary embolism as well as right lower lobe atelectasis. The patient was started on IV heparin drip as well as IV antibiotics. A Cardiology consultation was requested for further evaluation and management. REVIEW OF SYSTEMS: Performed and was negative other than what was mentioned in history of present illness. PAST MEDICAL HISTORY: Includes asthma. PAST SURGICAL HISTORY: None. FAMILY HISTORY: Noncontributory. SOCIAL HISTORY: The patient currently is homeless. Lives in a car. Used to smoke cigarettes. She states she is originally of identity theft and under a lot of stress. record shows she is 88, but the patient, she is actually 53 years old. REVIEW OF SYSTEMS: Negative other than what was mentioned in history of present illness even though she appears to be very upset. Even though she is interacting with, mostly upset about her identity theft. PHYSICAL EXAMINATION: VITAL SIGNS: Blood pressure of 113/72, pulse 57, respirations 18, and she is afebrile. HEAD AND NECK: No JVD. No carotid bruits. LUNGS: Clear. CARDIOVASCULAR: Regular S1 and S2 with no gallop or murmur. ABDOMEN: Soft. EXTREMITIES: No pitting edema. DIAGNOSTIC DATA: EKG shows sinus rhythm with no acute ST-T wave abnormality. Labs show white count of 8.1, hemoglobin 13.2, hematocrit 38.6, and platelet count is 272,000. Sodium 138, potassium 3.7, BUN 6, creatinine 0.8, and glucose of 110. Troponin is negative today. It is of note that the patient had an ER visit on December 05, and troponin then was also negative. Urine toxicology screen is positive for marijuana. D-dimer 3.91. CT of the chest showed bilateral pulmonary emboli. ASSESSMENT AND PLAN: 1. Hemoptysis and elevated D-dimer due to bilateral pulmonary emboli confirmed by the chest CT. The patient is currently on heparin drip. Management per Dr. Porter. 2. Urinary tract infection. The patient is on ceftriaxone. Echocardiogram will be also obtained to evaluate the pulmonary artery pressure, RV systolic pressure, and LV function in this patient with acute bilateral pulmonary embolism. 3. Questionable identity theft as the patient initially presented to emergency room with an age of approximately 80 years old and the patient's age and Social Security number current age and Social Security number. Thank you very much, Dr. Jauregui, for allowing me to participate in the care of this patient. Please do not hesitate to contact me for any questions regarding my evaluation. Julio Alfaro M.D. DR: Florian JOB#: [id number] CC:
[2018-12-10] MEDS ORDERED: Warfarin Sodium 5mg ORAL SCH (18:30)
--- NOTE | 2018-12-10 19:35 | NUR ---
HAND-OFF: Report given to Alor/RN, Endorsed plan of care.
--- NOTE | 2018-12-10 19:46 | NUR ---
NURSE NOTES: Received report from VIVIANE Iqbal. Patient is awake lying semi-garcia's; resting comfortably. No signs of acute distress noted; denies pain at this time. AOx4; able to make needs known. Ambulates independently. Checked IV site, lines, and IV rate; patent and running. Heparin drip running at 24 units/kg/hr for a rate of 34.401 mls/hr. Bed at lowest position, brakes on, siderails up x2. Call light within reach. Will continue to monitor.
[2018-12-10 20:00] VITALS: BP 115/71
--- NOTE | 2018-12-10 22:15 | Consultation ---
DATE OF CONSULTATION: 12/10/2018 PULMONARY CONSULTATION CONSULTING PHYSICIAN: Victor Manuel Porter M.D. REFERRING PHYSICIAN: Al Jauregui M.D. REASON FOR CONSULTATION: PE and hemoptysis. HISTORY OF PRESENT ILLNESS: The patient is a 53-year-old female smoker with likely underlying chronic obstructive pulmonary disease, chronic pain, and homelessness, who presented to the ER overnight with multiple complaints. She states she was having right-sided flank pain, worse after coughing with intermittent spasms. She complained of trace hemoptysis. She states that she has had prolonged immobility secondary to living in a car spent multiple hours with just sitting in a car. She is afebrile. Vital signs are stable. Stable on room air. CT angio was done in the ER, which showed bilateral subsegmental PE with patchy infiltrate versus atelectasis at the right base. There is also evidence of chronic emphysema with paraseptal bleb formation. The patient was started on IV heparin and admitted to the hospital. She denies any prior history of venous thromboembolism. She denies any recent respiratory illnesses. She denies cough, congestion, shortness of breath, or other complaints. PAST MEDICAL HISTORY: Underlying psychiatric disorder. PAST SURGICAL HISTORY: Denies. MEDICATIONS: Prior to admission medications, [place], Flexeril, Motrin, and Lidoderm. ALLERGIES: Morphine. SOCIAL HISTORY: Greater than 1 pack per day smoker. No drug or alcohol. Lives in her car. FAMILY HISTORY: Noncontributory. Denies any history of venous thromboembolism. REVIEW OF SYSTEMS: Negative other than history of present illness. PHYSICAL EXAMINATION: VITAL SIGNS: Temperature 98.9, pulse 57, blood pressure 113/72, respiratory rate 19, and saturating 92% on room air. GENERAL: She is a well-developed, well-nourished female, in no acute distress. Awake, alert, and oriented x3. HEENT: Normocephalic and atraumatic. Oropharynx is clear with moist mucous membranes. NECK: Supple without lymphadenopathy or JVD. CHEST: Fairly clear, but distant. HEART: Regular rate and rhythm. ABDOMEN: Soft, nontender, and nondistended. EXTREMITIES: No cyanosis, clubbing, or edema. ANCILLARY DATA: White count 8.1, hemoglobin 13.3, and platelet count 272,000. ABG, 7.45/41/67/28/93. D-dimer 3.91. Sodium 138, potassium 3.7, chloride 102, bicarbonate 29, BUN 6, creatinine 0.8, and glucose 110. Calcium 9.5. Total bilirubin 0.3. AST 18, ALT 17, and alkaline phosphatase 83. Troponin 0.00. Urinalysis, 2+ protein, 2+ blood, 8+ urobilinogen, 2+ leukocyte esterase, 10 to 15 red cells, 20 to 30 whites, and many bacteria. Toxicology screen positive for marijuana. Urine culture no growth. CT angio of the chest, multiple bilateral segmental and subsegmental PE, patchy infiltrate versus atelectasis at the right periphery, chronic lung disease, and paraseptal bleb formation. ASSESSMENT: The patient is a 53-year-old female with history of underlying psychiatric disorder, living in her car, presenting with atypical flank pain, noted to have bilateral pulmonary embolism. She likely has underlying chronic obstructive pulmonary disease as well. She does have atelectasis versus infiltrate, but no evidence of pneumonia. Clinically, she is being treated for urinary tract infection. Her PE is likely provoked from immobility. PROBLEM LIST: 1. Bilateral segmental and subsegmental pulmonary embolism. 2. Patchy atelectasis versus infiltrate at the right base. 3. Radiographic evidence of bullous emphysema. 4. Current daily smoker. 5. Homelessness. 6. Urinary tract infection. TREATMENT PLAN: 1. Optimize pulmonary hygiene/mobilize as tolerated. 2. P.r.n. bronchodilators. 3. Intravenous unfractionated heparin has been started. 4. The patient will require at least 3 to 6 months of anticoagulation for likely provoked DVT. 5. Hematology has also been consulted by the primary. I would defer hypercoagulable workup to them. 6. We will discuss with the team, but I favor starting a NOAC (novel oral anticoagulants). 7. Follow up duplex of the lower extremities. 8. Follow up echocardiogram. 9. Encourage abstinence from tobacco use. 10. Nicotine patch. 11. Monitor for signs of respiratory infection. 12. Continue antibiotics for urinary tract infection. 13. The patient has been seen and evaluated by Psychiatry as well. Victor Manuel Porter M.D. DR: HARPREET JOB#: [id number] CC:
[2018-12-11] VITALS: BP 120/79
[2018-12-11] MEDS ORDERED: Heparin 25,000u/D5W 500ml 500 ML IV SCH ×3 (00:15→12:30)
[2018-12-11 04:00] VITALS: BP 127/78
[2018-12-11 04:14] LABS: HEMATOCRIT 39.3 % (37.0-47.0); HEMOGLOBIN 13.3 G/DL (12.0-16.0); MEAN CORPUSCULAR VOLUME 99 FL (80-99); PLATELET COUNT 321 K/UL (150-450); RED BLOOD COUNT 3.96 M/UL (4.20-5.40); RED CELL DISTRIBUTION WIDTH 11.7 % (11.6-14.8); WHITE BLOOD COUNT 6.3 K/UL (4.8-10.8)
[2018-12-11 04:44] LABS: ALANINE AMINOTRANSFERASE 17 U/L (12-78); ALBUMIN/GLOBULIN RATIO 0.6 (1.0-2.7); ALKALINE PHOSPHATASE 79 U/L (46-116); ANION GAP 5 mmol/L (5-15); ASPARTATE AMINO TRANSFERASE 13 U/L (15-37); BILIRUBIN,TOTAL 0.4 MG/DL (0.2-1.0); BLOOD UREA NITROGEN 6 mg/dL (7-18); CALCIUM 9.1 MG/DL (8.5-10.1); CARBON DIOXIDE 31 MMOL/L (21-32); CHLORIDE 103 MMOL/L (98-107); CHOLESTEROL 163 MG/DL (< 200); CREATININE 0.7 MG/DL (0.55-1.30); HDL CHOLESTEROL 41 MG/DL (40-60); POTASSIUM 3.7 MMOL/L (3.5-5.1); SODIUM 139 MMOL/L (136-145); TRIGLYCERIDES 63 MG/DL (30-150)
[2018-12-11] MEDS ORDERED: Heparin 5000 units/ml inj IV ONE (05:00)
--- NOTE | 2018-12-11 07:20 | NUR ---
HAND-OFF: Report given to VIVIANE Chau. Patient is awake sitting on the bed; resting comfortably. Heparin drip running at 26 units/kg/hr. In stable condition.
--- NOTE | 2018-12-11 07:25 | NUR ---
NURSE NOTES: Received report from VIVIANE Burrows. Patient is resting in bed, in stable condition. No s/sx of SOB, breathing is even and unlabored. Bed is in lowest position, brakes engaged. Denies any presence of pain or discomfort at this time. Call light is kept within easy reach. Will continue to monitor patient.
[2018-12-11 08:00] VITALS: BP 150/68
--- NOTE | 2018-12-11 09:50 | NUR ---
*-* INSURANCE *-* UPDATED CLINICALS HAVE BEEN FAXED TO: [facility] NCM: JULIO CÉSAR P- [phone]
--- NOTE | 2018-12-11 10:02 | NUR ---
Social Service Note SW attempted to meet with patient to assess for homelessness. Patient appeared agitated and was speaking harshly to the nurse who was in the room. As SW identified herself patient began speaking in a raised voiced that SW was the reason why she was homeless. SW asked patient to elaborate. Patient states that the hospital has stole her identity and that SW works for the hospital. Patient spoke to SW through clinched teeth. Patient also blames the [facility] office of fucking her over and not providing her a roof over her head. Patient states she has multiple papers that show she is entitled to housing but because of her identity being stolen she is fucked. Patient refused to show SW housing paperwork and continued to blame SW for all her housing issues. Patient currently living in her car. Patient continued to escalate. SW attempted to deescalated patient however patient continued to yell and curse SW. Homeless Coordinator will follow up to assess for additional housing referrals. At this time patient indicated returning to her car. Patient didn't want to discuss emergency contacts with SW. Patient contracted PCP is Dr. Carlos Rome [phone]. Will continue to monitor and assist as needed.
[2018-12-11] MEDS: cefTRIAXone 1 GM in D5W 55 ML IVPB SCH (10:41)
--- NOTE | 2018-12-11 10:46 | Infectious Diseases Prog Note ---
Assessment/Plan Assessment/Plan IMPRESSION: Pyuria, doubt urinary tract infection. - urine culture; GPC< 10 K chronic obstructive pulmonary disease, active smoker, DVT of left leg, bilateral pulmonary emboli, hypoxemia. RECOMMENDATION: Discontinue ceftriaxone continue Nicotine patch & anticoagulation Subjective ROS Limited/Unobtainable: No Constitutional: Reports: no symptoms Respiratory: Reports: other - hemopthysis Cardiovascular: Reports: no symptoms Gastrointestinal/Abdominal: Reports: no symptoms Genitourinary: Reports: no symptoms Allergies: Coded Allergies: MORPHINE (Verified Allergy, Unknown, 12/09/18) Objective Vital Signs Last 24 Hour Vital Signs Date Time Temp Pulse Resp B/P (MAP) Pulse Ox O2 Delivery O2 Flow Rate FiO2 12/11/18 09:00 Room Air Room Air 12/11/18 08:00 99.0 66 20 150/68 (95) 100 12/11/18 07:15 73 18 Room Air 21 12/11/18 04:00 57 12/11/18 04:00 98.0 57 20 127/78 (94) 97 12/11/18 00:00 97.7 53 20 120/79 (93) 93 12/11/18 00:00 63 12/11/18 00:00 55 20 Room Air 21 12/10/18 21:00 Room Air 12/10/18 20:00 69 12/10/18 20:00 97.9 64 20 115/71 (86) 98 12/10/18 16:00 97.9 71 20 123/78 (93) 99 12/10/18 16:00 54 12/10/18 12:00 58 12/10/18 12:00 98.1 70 22 120/76 (91) 99 Height (Feet): 6 Weight (Pounds): 158 General Appearance: no acute distress HEENT: mucous membranes moist Respiratory/Chest: lungs clear Cardiovascular: normal rate Abdomen: soft, non tender Extremities: no edema Neurologic/Psychiatric: alert, oriented x 3, responsive Microbiology Date/Time Source Procedure Growth Status 12/09/18 13:00 Nasal Nares MRSA Culture - Final NO METHICILLIN RESISTANT STAPH AUREUS... Complete 12/09/18 10:25 Urine,Clean Catch Urine Culture - Final Gram Positive Cocci Complete 12/09/18 13:00 Rectum VRE Culture - Final NO VANCOMYCIN RESISTANT ENTEROCOCCUS ... Complete 12/09/18 13:00 Rectum - Final NO CARBAPENEM-RESISTANT ENTEROBACTERI... Complete Laboratory Tests Test 12/10/18 16:45 12/11/18 04:04 Prothrombin Time 11.3 SEC (9.30-11.50) 11.0 SEC (9.30-11.50) Prothromb Time International Ratio 1.1 (0.9-1.1) 1.0 (0.9-1.1) Activated Partial Thromboplast Time 66 SEC (23-33) H 62 SEC (23-33) H Carcinoembryonic Antigen 3.8 ng/mL (0.0-4.7) CA 15-3 Antigen 21.1 U/mL (0.0-25.0) CA 19-9 Antigen 1 U/mL (0-35) CA 125 Antigen 11.3 U/mL (0.0-38.1) White Blood Count 6.3 K/UL (4.8-10.8) Red Blood Count 3.96 M/UL (4.20-5.40) L Hemoglobin 13.3 G/DL (12.0-16.0) Hematocrit 39.3 % (37.0-47.0) Mean Corpuscular Volume 99 FL (80-99) Mean Corpuscular Hemoglobin 33.5 PG (27.0-31.0) H Mean Corpuscular Hemoglobin Concent 33.8 G/DL (32.0-36.0) Red Cell Distribution Width 11.7 % (11.6-14.8) Platelet Count 321 K/UL (150-450) Mean Platelet Volume 4.6 FL (6.5-10.1) L Neutrophils (%) (Auto) % (45.0-75.0) Lymphocytes (%) (Auto) % (20.0-45.0) Monocytes (%) (Auto) % (1.0-10.0) Eosinophils (%) (Auto) % (0.0-3.0) Basophils (%) (Auto) % (0.0-2.0) Neutrophils % (Manual) Pending Lymphocytes % (Manual) Pending Platelet Estimate Pending Platelet Morphology Pending Sodium Level 139 MMOL/L (136-145) Potassium Level 3.7 MMOL/L (3.5-5.1) Chloride Level 103 MMOL/L (98-107) Carbon Dioxide Level 31 MMOL/L (21-32) Anion Gap 5 mmol/L (5-15) Blood Urea Nitrogen 6 mg/dL (7-18) L Creatinine 0.7 MG/DL (0.55-1.30) Estimat Glomerular Filtration Rate > 60 mL/min (>60) Glucose Level 105 MG/DL (74-106) Calcium Level 9.1 MG/DL (8.5-10.1) Total Bilirubin 0.4 MG/DL (0.2-1.0) Aspartate Amino Transf (AST/SGOT) 13 U/L (15-37) L Alanine Aminotransferase (ALT/SGPT) 17 U/L (12-78) Alkaline Phosphatase 79 U/L (46-116) Troponin I 0.000 ng/mL (0.000-0.056) Pro-B-Type Natriuretic Peptide 155 pg/mL (0-125) H Total Protein 7.8 G/DL (6.4-8.2) Albumin 3.0 G/DL (3.4-5.0) L Globulin 4.8 g/dL Albumin/Globulin Ratio 0.6 (1.0-2.7) L Triglycerides Level 63 MG/DL (30-150) Cholesterol Level 163 MG/DL (< 200) LDL Cholesterol 107 mg/dL (<100) H HDL Cholesterol 41 MG/DL (40-60) Cholesterol/HDL Ratio 4.0 (3.3-4.4) Current Medications Medications (Trade) Dose Ordered Sig/Lucero Route PRN Reason Start Time Stop Time Status Last Admin Dose Admin Albuterol/ Ipratropium (Albuterol/ Ipratropium) 3 ml Q4H PRN HHN Shortness of Breath 12/09/18 21:45 12/14/18 21:44 Ceftriaxone Sodium 1 gm/ Dextrose 55 ml @ 110 mls/hr Q24H IVPB 12/10/18 11:00 12/17/18 10:59 12/10/18 11:57 Heparin Sodium/ Dextrose 500 ml @ 37.267 mls/ hr ADJUST PER PROTOCOL IV 12/11/18 05:00 01/10/19 00:14 12/11/18 05:05 Nicotine (Nicoderm) 1 patch Q24H TDERMAL 12/10/18 14:00 01/09/19 13:59 12/10/18 15:21 Warfarin Sodium (Coumadin per pharmacy) 1 ea DAILY PRN MISC Per rx protocol 12/10/18 14:30 01/09/19 14:29 Warfarin Sodium (Coumadin) 5 mg ONCE ORAL 12/11/18 17:00 12/11/18 19:00 Chris Prince MD December 11, 2018 10:46
[2018-12-11 12:00] VITALS: BP 123/91
--- NOTE | 2018-12-11 13:22 | General Progress Note ---
Assessment/Plan Status: unchanged Assessment/Plan: Assessment and Recs: # Bilateral pulmonary embolism as noted on imaging of cta, provoking factor doesn't appear to be consistent with any recent immobility, has never had clots , no hx of hypercoag disorder in the family, no history of recent travel either , duplex shows left leg dvt --> Left leg duplex shows Venous imaging reveals acute thrombus in the popliteal and one of the paired peroneal veins. Imaging also reveals patency of the common femoral, and calf veins (posterior tibial and anterior). Greater saphenous vein also within normal limits. --> continue heparin gtt and transition to a noac, or coumadin goal 2-3 inr --> tumor markers have been reviewed, ca19.9, cea, afp are wnl --> as an outpatient can f/u in the office and obtain cancer screening and ct imaging as well to r/o malignancy --> at this time, recommend anticoag for total of 3 months # Anemia of chronic disease due to underlying chronic medical issues, multifactorial --> Anemia workup has been ordered, rule out gi bleed --> No evidence of hemolysis is noted, peripheral smear has been reviewed --> hgb goal is >7 # Urinary tract infection --> s/p antibiotics that have been started # Marijuana use as per utox # Psych disorder as per psych The timing of this note does not necessarily reflect the time of the patient was seen. Greatly appreciate consultation! Subjective Constitutional: Denies: no symptoms, chills, diaphoresis, fever, malaise, weakness, other Cardiovascular: Denies: no symptoms, chest pain, edema, irregular heart rate, lightheadedness, palpitations, syncope, other Respiratory: Denies: no symptoms, cough, orthopnea, shortness of breath, SOB with excertion, SOB at rest, sputum, stridor, wheezing, other Gastrointestinal/Abdominal: Denies: no symptoms, abdomen distended, abdominal pain, black stools, tarry stools, blood in stool, constipated, diarrhea, difficulty swallowing, nausea, poor appetite, poor fluid intake, rectal bleeding , vomiting, other Genitourinary: Denies: no symptoms, burning, discharge, frequency, flank pain, hematuria, incontinence, pain, urgency, other Endocrine: Denies: no symptoms, excessive sweating, flushing, intolerance to cold, intolerance to heat, increased hunger, increased thirst, increased urine, unexplained weight gain, unexplained weight loss, other Hematologic/Lymphatic: Denies: no symptoms, anemia, easy bleeding, easy bruising, other Allergies: Coded Allergies: MORPHINE (Verified Allergy, Unknown, 12/09/18) Subjective 12/11: no events have been noted, on heparin and coumadin, inr goal 2-3 Objective Last 24 Hour Vital Signs Date Time Temp Pulse Resp B/P (MAP) Pulse Ox O2 Delivery O2 Flow Rate FiO2 12/11/18 12:00 98.9 66 20 123/91 (102) 98 12/11/18 09:00 Room Air Room Air 12/11/18 08:00 99.0 66 20 150/68 (95) 100 12/11/18 08:00 61 12/11/18 07:15 73 18 Room Air 21 12/11/18 04:00 57 12/11/18 04:00 98.0 57 20 127/78 (94) 97 12/11/18 00:00 97.7 53 20 120/79 (93) 93 12/11/18 00:00 63 12/11/18 00:00 55 20 Room Air 21 12/10/18 21:00 Room Air 12/10/18 20:00 69 12/10/18 20:00 97.9 64 20 115/71 (86) 98 12/10/18 16:00 97.9 71 20 123/78 (93) 99 12/10/18 16:00 54 Intake and Output 12/10/18 12/11/18 18:59 06:59 Intake Total 240 ml 813.837 ml Balance 240 ml 813.837 ml Intake Oral 240 ml 450 ml IV Total 363.837 ml # Voids 3 3 Laboratory Tests 12/10/18 16:45: Prothrombin Time 11.3, Prothromb Time International Ratio 1.1, Activated Partial Thromboplast Time 66H, Carcinoembryonic Antigen 3.8, CA 15-3 Antigen 21.1, CA 19-9 Antigen 1, CA 125 Antigen 11.3 12/11/18 04:04: Prothrombin Time 11.0, Prothromb Time International Ratio 1.0, Activated Partial Thromboplast Time 62H, White Blood Count 6.3, Red Blood Count 3.96L, Hemoglobin 13.3, Hematocrit 39.3, Mean Corpuscular Volume 99, Mean Corpuscular Hemoglobin 33.5H, Mean Corpuscular Hemoglobin Concent 33.8, Red Cell Distribution Width 11.7, Platelet Count 321, Mean Platelet Volume 4.6L, Neutrophils (%) (Auto) , Lymphocytes (%) (Auto) , Monocytes (%) (Auto) , Eosinophils (%) (Auto) , Basophils (%) (Auto) , Differential Total Cells Counted 100, Neutrophils % (Manual) 38L, Lymphocytes % (Manual) 55H, Monocytes % (Manual) 4, Eosinophils % (Manual) 3, Basophils % (Manual) 0, Band Neutrophils 0, Platelet Estimate Adequate, Platelet Morphology Normal, Macrocytosis 1+, Sodium Level 139, Potassium Level 3.7, Chloride Level 103, Carbon Dioxide Level 31, Anion Gap 5, Blood Urea Nitrogen 6L, Creatinine 0.7, Estimat Glomerular Filtration Rate > 60, Glucose Level 105, Calcium Level 9.1, Total Bilirubin 0.4, Aspartate Amino Transf (AST/SGOT) 13L, Alanine Aminotransferase (ALT/SGPT) 17, Alkaline Phosphatase 79, Troponin I 0.000, Pro-B -Type Natriuretic Peptide 155H, Total Protein 7.8, Albumin 3.0L, Globulin 4.8, Albumin/Globulin Ratio 0.6L, Triglycerides Level 63, Cholesterol Level 163, LDL Cholesterol 107H, HDL Cholesterol 41, Cholesterol/HDL Ratio 4.0 12/11/18 11:00: Activated Partial Thromboplast Time 124H Height (Feet): 6 Weight (Pounds): 158 Objective Sp02 EP Interpretation: reviewed, normal General Appearance: normal inspection, well appearing, GCS 15 Head: atraumatic ENT: normal ENT inspection, hearing grossly normal Neck: normal inspection, full range of motion, supple, no bony tend Respiratory: normal inspection, lungs clear, normal breath sounds Cardiovascular: regular rate, rhythm, no edema Gastrointestinal: normal inspection, normal BSs Genitourinary: no CVA tenderness Msk: normal inspection, back normal, nml rom Neurologic: normal inspection, alert, oriented x3, responsive Psychiatric: normal inspection, judgement/insight normal Skin: normal inspection, normal color, no rash Arnold Zuniga MD December 11, 2018 13:22
--- NOTE | 2018-12-11 14:15 | History and Physical Report ---
DATE OF ADMISSION: 12/09/2018 NOTE: POOR AUDIO HISTORY OF PRESENT ILLNESS: The patient is here for multiple segmental pulmonary embolism. The patient was tachycardic. He was started on heparin drip and possible UTI as well as PE. The patient has trace hemoptysis chest pain as well. It has been going on for a couple of days and shortness of breath and very weak. Denies exertional dyspnea. The patient has pain initially started from back to the right flank and also complaining of bilateral legs especially . PAST MEDICAL HISTORY: Significant for chronic pain syndrome. SURGICAL HISTORY: . SOCIAL HISTORY: of smoking . No history of alcohol abuse. ALLERGIES: Morphine. MEDICATIONS: Takes and Motrin. FAMILY HISTORY: Noncontributory. REVIEW OF SYSTEMS: HEENT: Denies headaches. RESPIRATORY: Denies shortness of breath. Denies cough. CARDIOVASCULAR: Denies chest pain or orthopnea. GI: Denies nausea, vomiting, or diarrhea. EXTREMITIES: . PHYSICAL EXAMINATION: VITAL SIGNS: Temperature 98.9, pulse is 57, blood pressure is 113/70. HEENT: PERRLA. NECK: Supple. No lymphadenopathy. CHEST: Clear to auscultation. CARDIOVASCULAR: Regular rate and rhythm. No murmurs or extra sounds. GASTROINTESTINAL: Soft, nontender, and nondistended. No organomegaly. EXTREMITIES: No edema. Reflexes in both sides. Moves all four extremities. LABORATORY STUDIES: WBC of 8.4, hemoglobin 12.9, and platelets 270. Sodium 137, potassium 4.3, BUN of 7, creatinine 0.8, and glucose of 85. ASSESSMENT AND PLAN: Pulmonary embolism, DVT, pleuritic chest pain. I have asked Dr. Estrada and Dr. Alfaro, Dr. Arnold Zuniga, Dr. Chris Prince, Dr. Porter, and Dr. Oconnell to see the patient for the above-mentioned diagnoses and treatment. Al Jauregui M.D. DR: Summer JOB#: [id number] CC:
--- NOTE | 2018-12-11 14:37 | Pulmonology Progress Note ---
Assessment/Plan Problems: (1) DVT (deep venous thrombosis) (2) Bilateral pulmonary embolism Assessment/Plan ASSESSMENT: The patient is a 53-year-old female with history of underlying psychiatric disorder, living in her car, presenting with atypical flank pain, noted to have bilateral pulmonary embolism. She likely has underlying chronic obstructive pulmonary disease as well. She does have atelectasis versus infiltrate, but no evidence of pneumonia. Clinically, she is being treated for urinary tract infection. Her PE is likely provoked from immobility. PROBLEM LIST: 1. Bilateral segmental and subsegmental pulmonary embolism 2. L peroneal and popliteal DVT 3. Patchy atelectasis versus infiltrate at the right base. 4. Radiographic evidence of bullous emphysema. 5. Current daily smoker. 6. Homelessness. 7. Urinary tract infection. TREATMENT PLAN: 1. Optimize pulmonary hygiene/mobilize as tolerated. 2. P.r.n. bronchodilators. 3. AC per heme, currently on IVUH and Coumadin, ? consider switching to NOAC 4. Defer duration of AC to heme but if truly provoked will need @ least 3-6 months of A/C 5. Abx D/C'd by ID 6. Encourage abstinence from tobacco use. 7. Nicotine patch. 8. PRN HHN's 9. Should have an outpatient pulmonary evaluation 10. Patient is stable from a respiratory standpoint, will sign off and follow peripherally. Please call with any questions or change in status. Subjective Allergies: Coded Allergies: MORPHINE (Verified Allergy, Unknown, 12/09/18) Subjective AFVSS on RA Sylvester AC, coumadin per onc No cough, no SOB, no wheezing, no hemoptysis, no FC Objective Last 24 Hour Vital Signs Date Time Temp Pulse Resp B/P (MAP) Pulse Ox O2 Delivery O2 Flow Rate FiO2 12/11/18 12:00 98.9 66 20 123/91 (102) 98 12/11/18 09:00 Room Air Room Air 12/11/18 08:00 99.0 66 20 150/68 (95) 100 12/11/18 08:00 61 12/11/18 07:15 73 18 Room Air 21 12/11/18 04:00 57 12/11/18 04:00 98.0 57 20 127/78 (94) 97 12/11/18 00:00 97.7 53 20 120/79 (93) 93 12/11/18 00:00 63 12/11/18 00:00 55 20 Room Air 21 12/10/18 21:00 Room Air 12/10/18 20:00 69 12/10/18 20:00 97.9 64 20 115/71 (86) 98 12/10/18 16:00 97.9 71 20 123/78 (93) 99 12/10/18 16:00 54 Intake and Output 12/10/18 12/11/18 18:59 06:59 Intake Total 240 ml 813.837 ml Balance 240 ml 813.837 ml Intake Oral 240 ml 450 ml IV Total 363.837 ml # Voids 3 3 General Appearance: WD/WN, no acute distress HEENT: normocephalic, atraumatic, anicteric, mucous membranes moist Respiratory/Chest: chest wall non-tender, lungs clear, normal breath sounds, no respiratory distress Cardiovascular: normal peripheral pulses, normal rate, regular rhythm Abdomen: normal bowel sounds, soft, non tender, no organomegaly, non distended , no mass Extremities: no cyanosis, no clubbing, no edema Microbiology Date/Time Source Procedure Growth Status 12/09/18 13:00 Nasal Nares MRSA Culture - Final NO METHICILLIN RESISTANT STAPH AUREUS... Complete 12/09/18 10:25 Urine,Clean Catch Urine Culture - Final Gram Positive Cocci Complete 12/09/18 13:00 Rectum VRE Culture - Final NO VANCOMYCIN RESISTANT ENTEROCOCCUS ... Complete 12/09/18 13:00 Rectum - Final NO CARBAPENEM-RESISTANT ENTEROBACTERI... Complete Laboratory Tests 12/10/18 16:45: Prothrombin Time 11.3, Prothromb Time International Ratio 1.1, Activated Partial Thromboplast Time 66H, Carcinoembryonic Antigen 3.8, CA 15-3 Antigen 21.1, CA 19-9 Antigen 1, CA 125 Antigen 11.3 12/11/18 04:04: Prothrombin Time 11.0, Prothromb Time International Ratio 1.0, Activated Partial Thromboplast Time 62H, White Blood Count 6.3, Red Blood Count 3.96L, Hemoglobin 13.3, Hematocrit 39.3, Mean Corpuscular Volume 99, Mean Corpuscular Hemoglobin 33.5H, Mean Corpuscular Hemoglobin Concent 33.8, Red Cell Distribution Width 11.7, Platelet Count 321, Mean Platelet Volume 4.6L, Neutrophils (%) (Auto) , Lymphocytes (%) (Auto) , Monocytes (%) (Auto) , Eosinophils (%) (Auto) , Basophils (%) (Auto) , Differential Total Cells Counted 100, Neutrophils % (Manual) 38L, Lymphocytes % (Manual) 55H, Monocytes % (Manual) 4, Eosinophils % (Manual) 3, Basophils % (Manual) 0, Band Neutrophils 0, Platelet Estimate Adequate, Platelet Morphology Normal, Macrocytosis 1+, Sodium Level 139, Potassium Level 3.7, Chloride Level 103, Carbon Dioxide Level 31, Anion Gap 5, Blood Urea Nitrogen 6L, Creatinine 0.7, Estimat Glomerular Filtration Rate > 60, Glucose Level 105, Calcium Level 9.1, Total Bilirubin 0.4, Aspartate Amino Transf (AST/SGOT) 13L, Alanine Aminotransferase (ALT/SGPT) 17, Alkaline Phosphatase 79, Troponin I 0.000, Pro-B -Type Natriuretic Peptide 155H, Total Protein 7.8, Albumin 3.0L, Globulin 4.8, Albumin/Globulin Ratio 0.6L, Triglycerides Level 63, Cholesterol Level 163, LDL Cholesterol 107H, HDL Cholesterol 41, Cholesterol/HDL Ratio 4.0 12/11/18 11:00: Activated Partial Thromboplast Time 124H Current Medications Medications (Trade) Dose Ordered Sig/Lucero Route PRN Reason Start Time Stop Time Status Last Admin Dose Admin Albuterol/ Ipratropium (Albuterol/ Ipratropium) 3 ml Q4H PRN HHN Shortness of Breath 12/09/18 21:45 12/14/18 21:44 Heparin Sodium/ Dextrose 500 ml @ 32.967 mls/ hr ADJUST PER PROTOCOL IV 12/11/18 12:30 01/10/19 12:29 12/11/18 12:31 Nicotine (Nicoderm) 1 patch Q24H TDERMAL 12/10/18 14:00 01/09/19 13:59 12/11/18 13:18 Warfarin Sodium (Coumadin per pharmacy) 1 ea DAILY PRN MISC Per rx protocol 12/10/18 14:30 01/09/19 14:29 Warfarin Sodium (Coumadin) 5 mg ONCE ORAL 12/11/18 17:00 12/11/18 19:00 Victor Manuel Porter MD December 11, 2018 14:37
--- NOTE | 2018-12-11 14:45 | Cardiology Report ---
APPROVED REPORT EKG Measurement Heart [id number] Normal sinus rhythm Normal ECG
[2018-12-11] MEDS: Eliquis 2.5mg tablet ORAL SCH (15:07)
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
[2018-12-11 16:00] VITALS: BP 143/82
--- NOTE | 2018-12-11 16:00 | NUR ---
CASE MANAGEMENT:REVIEW 12/11/18 SI: BILATERAL PULMONARY EMBOLISM. UTI 98.9 66 20 123/91 98% ON RA INR-1.0 APTT+124 IS: HEPARIN GTT : TELEMETRY STATUS PLAN: DC HEPARIN GTT START ELIQUIS
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
[2018-12-11] MEDS ORDERED: Warfarin Sodium 5mg ORAL SCH (17:00)
--- NOTE | 2018-12-11 17:41 | Cardiology Report ---
APPROVED REPORT EKG Measurement Heart [id number] Sinus bradycardia Otherwise normal ECG
[2018-12-11] MEDS ORDERED: Guaifenesin/DM 10ml syrup ORAL PRN (19:15)
--- NOTE | 2018-12-11 19:38 | NUR ---
HAND-OFF: Report given to VIVIANE Burrows.
--- NOTE | 2018-12-11 19:45 | NUR ---
NURSE NOTES: Received report from VIVIANE Chau. Patient is awake lying semi-garcia's talking on the phone. No signs of acute distress noted; denies pain at this time. AOx4; able to make needs known. Ambulates independently. Checked IV site; patent and flushed. No erythema, bleeding, or infiltration noted. Bed at lowest position, brakes on, siderails up x2. Call light within reach. Will continue to monitor.
[2018-12-11 20:00] VITALS: BP 140/99
--- NOTE | 2018-12-11 21:03 | General Progress Note ---
Assessment/Plan Problem List: (1) Bilateral pulmonary embolism ICD Codes: I26.99 - Other pulmonary embolism without acute cor pulmonale SNOMED: 22250946 (2) DVT (deep venous thrombosis) ICD Codes: I82.409 - Acute embolism and thrombosis of unspecified deep veins of unspecified lower extremity SNOMED: 681504860 (3) Urinary tract infection ICD Codes: N39.0 - Urinary tract infection, site not specified SNOMED: 39750111 Status: progressing, unchanged Assessment/Plan: afebrile pulmonary embolism dvt anticoagulant per heme/onc no sob Subjective ROS Limited/Unobtainable: Yes Allergies: Coded Allergies: MORPHINE (Verified Allergy, Unknown, 12/09/18) Objective Last 24 Hour Vital Signs Date Time Temp Pulse Resp B/P (MAP) Pulse Ox O2 Delivery O2 Flow Rate FiO2 12/11/18 20:00 80 18 Room Air 21 12/11/18 16:00 98.2 66 20 143/82 (102) 98 12/11/18 16:00 100 12/11/18 12:00 76 12/11/18 12:00 98.9 66 20 123/91 (102) 98 12/11/18 09:00 Room Air Room Air 12/11/18 08:00 99.0 66 20 150/68 (95) 100 12/11/18 08:00 61 12/11/18 07:15 73 18 Room Air 21 12/11/18 04:00 57 12/11/18 04:00 98.0 57 20 127/78 (94) 97 12/11/18 00:00 97.7 53 20 120/79 (93) 93 12/11/18 00:00 63 12/11/18 00:00 55 20 Room Air 21 Intake and Output 12/10/18 12/11/18 19:00 07:00 Intake Total 274.401 ml 813.597 ml Balance 274.401 ml 813.597 ml Intake Oral 240 ml 450 ml IV Total 34.401 ml 363.597 ml # Voids 3 3 Laboratory Tests 12/11/18 04:04: White Blood Count 6.3, Red Blood Count 3.96L, Hemoglobin 13.3, Hematocrit 39.3, Mean Corpuscular Volume 99, Mean Corpuscular Hemoglobin 33.5H, Mean Corpuscular Hemoglobin Concent 33.8, Red Cell Distribution Width 11.7, Platelet Count 321, Mean Platelet Volume 4.6L, Neutrophils (%) (Auto) , Lymphocytes (%) (Auto) , Monocytes (%) (Auto) , Eosinophils (%) (Auto) , Basophils (%) (Auto) , Differential Total Cells Counted 100, Neutrophils % (Manual) 38L, Lymphocytes % (Manual) 55H, Monocytes % (Manual) 4, Eosinophils % (Manual) 3, Basophils % ( Manual) 0, Band Neutrophils 0, Platelet Estimate Adequate, Platelet Morphology Normal, Macrocytosis 1+, Prothrombin Time 11.0, Prothromb Time International Ratio 1.0, Activated Partial Thromboplast Time 62H, Sodium Level 139, Potassium Level 3.7, Chloride Level 103, Carbon Dioxide Level 31, Anion Gap 5, Blood Urea Nitrogen 6L, Creatinine 0.7, Estimat Glomerular Filtration Rate > 60, Glucose Level 105, Calcium Level 9.1, Total Bilirubin 0.4, Aspartate Amino Transf (AST/ SGOT) 13L, Alanine Aminotransferase (ALT/SGPT) 17, Alkaline Phosphatase 79, Troponin I 0.000, Pro-B-Type Natriuretic Peptide 155H, Total Protein 7.8, Albumin 3.0L, Globulin 4.8, Albumin/Globulin Ratio 0.6L, Triglycerides Level 63 , Cholesterol Level 163, LDL Cholesterol 107H, HDL Cholesterol 41, Cholesterol/ HDL Ratio 4.0 12/11/18 11:00: Activated Partial Thromboplast Time 124H Height (Feet): 6 Weight (Pounds): 158 Neck: supple Cardiovascular: normal rate Respiratory/Chest: lungs clear Abdomen: soft Al Jauregui MD December 11, 2018 21:03
[2018-12-11] MEDS ORDERED: LORazepam 1mg tab ORAL PRN (22:00)
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
[2018-12-12] VITALS: BP 116/68
--- NOTE | 2018-12-12 03:53 | NUR ---
NURSE NOTES: Patient is asleep lying semi-garcia's; resting comfortably. No signs of acute distress or pain noted at this time.
[2018-12-12 04:00] VITALS: BP 121/73
[2018-12-12 06:56] LABS: BASOPHILS % (AUTO) 0.7 % (0.0-2.0); EOSINOPHILS % (AUTO) 3.4 % (0.0-3.0); HEMATOCRIT 37.9 % (37.0-47.0); HEMOGLOBIN 12.7 G/DL (12.0-16.0); MEAN CORPUSCULAR VOLUME 101 FL (80-99); MONOCYTES % (AUTO) 9.3 % (1.0-10.0); NEUTROPHILS % (AUTO) 37.6 % (45.0-75.0); PLATELET COUNT 340 K/UL (150-450); RED BLOOD COUNT 3.76 M/UL (4.20-5.40); WHITE BLOOD COUNT 4.8 K/UL (4.8-10.8)
--- NOTE | 2018-12-12 07:19 | NUR ---
HAND-OFF: Report given to VIVIANE Ortiz. Patient is awake getting prepared to eat breakfast. In stable condition.
[2018-12-12 07:30] LABS: ALANINE AMINOTRANSFERASE 17 U/L (12-78); ALBUMIN 3.1 G/DL (3.4-5.0); ALBUMIN/GLOBULIN RATIO 0.7 (1.0-2.7); ALKALINE PHOSPHATASE 77 U/L (46-116); ANION GAP 6 mmol/L (5-15); ASPARTATE AMINO TRANSFERASE 16 U/L (15-37); BILIRUBIN,TOTAL 0.4 MG/DL (0.2-1.0); BLOOD UREA NITROGEN 6 mg/dL (7-18); CALCIUM 9.7 MG/DL (8.5-10.1); CARBON DIOXIDE 30 MMOL/L (21-32); CHLORIDE 104 MMOL/L (98-107); CREATININE 0.8 MG/DL (0.55-1.30); POTASSIUM 4.4 MMOL/L (3.5-5.1); SODIUM 140 MMOL/L (136-145)
[2018-12-12 08:00] VITALS: BP 122/74
--- NOTE | 2018-12-12 08:35 | NUR ---
NURSE NOTES: Patient is alert and oriented. Patient noted to be pacing down hallways. Patient noted to be agitated. Patient report kitchen keeps getting food order wrong. RN helped patient with new order for breakfast. Patient returned to room. Bed is locked and call light is within reach. Will continue to monitor.
[2018-12-12] MEDS: Eliquis 2.5mg tablet ORAL SCH ×2 (09:05→17:34)
--- NOTE | 2018-12-12 09:07 | NUR ---
CASE MANAGEMENT:REVIEW 12/12/18 SI: BILATERAL PULMONARY EMBOLISM. UTI 98.0 60 18 121/73 97% ON RA IS: ELIQUIS PO BID ATIVAN PO Q6HRS PRN NICODERM Q24 DUONEB HHN : TELEMETRY STATUS DCP: PATIENT WOULD LIKE TO RETURN TO HER CARE
--- NOTE | 2018-12-12 09:14 | Infectious Diseases Prog Note ---
Assessment/Plan Assessment/Plan IMPRESSION: Pyuria, doubt urinary tract infection. - urine culture; GPC< 10 K chronic obstructive pulmonary disease, active smoker, DVT of left leg, bilateral pulmonary emboli, hypoxemia. RECOMMENDATION: Observe off antibiotic continue Nicotine patch & anticoagulation Subjective ROS Limited/Unobtainable: No Constitutional: Reports: no symptoms Respiratory: Reports: no symptoms Cardiovascular: Reports: no symptoms Gastrointestinal/Abdominal: Reports: no symptoms Allergies: Coded Allergies: MORPHINE (Verified Allergy, Unknown, 12/09/18) Objective Vital Signs Last 24 Hour Vital Signs Date Time Temp Pulse Resp B/P (MAP) Pulse Ox O2 Delivery O2 Flow Rate FiO2 12/12/18 07:54 70 18 Room Air 21 12/12/18 04:00 60 12/12/18 04:00 98.0 68 18 121/73 (89) 97 12/12/18 00:00 61 12/12/18 00:00 97.3 56 18 116/68 (84) 98 12/11/18 21:00 Room Air 12/11/18 20:00 97.0 76 18 140/99 (113) 98 12/11/18 20:00 80 18 Room Air 21 12/11/18 20:00 73 12/11/18 16:00 98.2 66 20 143/82 (102) 98 12/11/18 16:00 100 12/11/18 12:00 76 12/11/18 12:00 98.9 66 20 123/91 (102) 98 Height (Feet): 6 Weight (Pounds): 158 General Appearance: no acute distress HEENT: mucous membranes moist Respiratory/Chest: lungs clear Cardiovascular: normal rate Abdomen: soft, non tender Extremities: no edema Neurologic/Psychiatric: alert, oriented x 3, responsive Microbiology Date/Time Source Procedure Growth Status 12/09/18 13:00 Nasal Nares MRSA Culture - Final NO METHICILLIN RESISTANT STAPH AUREUS... Complete 12/09/18 10:25 Urine,Clean Catch Urine Culture - Final Gram Positive Cocci Complete 12/09/18 13:00 Rectum VRE Culture - Final NO VANCOMYCIN RESISTANT ENTEROCOCCUS ... Complete 12/09/18 13:00 Rectum - Final NO CARBAPENEM-RESISTANT ENTEROBACTERI... Complete Laboratory Tests Test 12/11/18 11:00 12/12/18 06:09 Activated Partial Thromboplast Time 124 SEC (23-33) H White Blood Count 4.8 K/UL (4.8-10.8) Red Blood Count 3.76 M/UL (4.20-5.40) L Hemoglobin 12.7 G/DL (12.0-16.0) Hematocrit 37.9 % (37.0-47.0) Mean Corpuscular Volume 101 FL (80-99) H Mean Corpuscular Hemoglobin 33.9 PG (27.0-31.0) H Mean Corpuscular Hemoglobin Concent 33.6 G/DL (32.0-36.0) Red Cell Distribution Width 12.0 % (11.6-14.8) Platelet Count 340 K/UL (150-450) Mean Platelet Volume 4.7 FL (6.5-10.1) L Neutrophils (%) (Auto) 37.6 % (45.0-75.0) L Lymphocytes (%) (Auto) 49.0 % (20.0-45.0) H Monocytes (%) (Auto) 9.3 % (1.0-10.0) Eosinophils (%) (Auto) 3.4 % (0.0-3.0) H Basophils (%) (Auto) 0.7 % (0.0-2.0) Prothrombin Time 10.9 SEC (9.30-11.50) Prothromb Time International Ratio 1.0 (0.9-1.1) Sodium Level 140 MMOL/L (136-145) Potassium Level 4.4 MMOL/L (3.5-5.1) Chloride Level 104 MMOL/L (98-107) Carbon Dioxide Level 30 MMOL/L (21-32) Anion Gap 6 mmol/L (5-15) Blood Urea Nitrogen 6 mg/dL (7-18) L Creatinine 0.8 MG/DL (0.55-1.30) Estimat Glomerular Filtration Rate > 60 mL/min (>60) Glucose Level 99 MG/DL (74-106) Calcium Level 9.7 MG/DL (8.5-10.1) Total Bilirubin 0.4 MG/DL (0.2-1.0) Aspartate Amino Transf (AST/SGOT) 16 U/L (15-37) Alanine Aminotransferase (ALT/SGPT) 17 U/L (12-78) Alkaline Phosphatase 77 U/L (46-116) Total Protein 7.6 G/DL (6.4-8.2) Albumin 3.1 G/DL (3.4-5.0) L Globulin 4.5 g/dL Albumin/Globulin Ratio 0.7 (1.0-2.7) L Current Medications Medications (Trade) Dose Ordered Sig/Lucero Route PRN Reason Start Time Stop Time Status Last Admin Dose Admin Albuterol/ Ipratropium (Albuterol/ Ipratropium) 3 ml Q4H PRN HHN Shortness of Breath 12/09/18 21:45 12/14/18 21:44 Apixaban (Eliquis) 5 mg BID ORAL 12/11/18 14:43 01/10/19 14:42 12/12/18 09:05 Guaifenesin/ Dextromethorphan (Robitussin DM Syrup) 10 ml Q8H PRN ORAL For Cough 12/11/18 19:15 01/10/19 19:14 Lorazepam (Ativan) 2 mg Q6H PRN ORAL For Anxiety 12/11/18 22:00 12/18/18 21:59 Nicotine (Nicoderm) 1 patch Q24H TDERMAL 12/10/18 14:00 01/09/19 13:59 12/11/18 13:18 Chris Prince MD December 12, 2018 09:14
--- NOTE | 2018-12-12 11:13 | Cardiology Report ---
APPROVED REPORT EXAM: Two-dimensional and M-mode echocardiogram with Doppler and color Doppler. INDICATION Chest Pain M-Mode DIMENSIONS IVSd0.8 (0.7-1.1cm)Left Atrium (MM)3.5 (1.6-4.0cm) LVDd4.8 (3.5-5.6cm)Aortic Root2.6 (2.0-3.7cm) PWd1.2 (0.7-1.1cm)Aortic Cusp Exc.1.9 (1.5-2.0cm) LVDs2.9 (2.5-4.0cm) PWs1.5 cm Normal left ventricular chamber size, systolic function and wall motion. Left ventricular ejection fraction estimated to be 60-65 %. Borderline mild left ventricular hypertrophy by 2-D. No evidence of pericardial effusion. Mild right atrial enlargement. All other cardiac chamber sizes are within normal limits. Focal aortic valve sclerosis with adequate cusp excursion. Thickened mitral valve leaflets with normal excursion. Mitral annulus and aortic root calcification. Pulmonic valve not well visualized. Normal tricuspid valve structure. IVC at normal size with physiologic collapse. A color flow and spectral Doppler study was performed and revealed: Trace mitral regurgitation. Mitral diastolic velocities suggest reduced left ventricular relaxation c/w mild LV diastolic dysfunction. Mild to moderate tricuspid regurgitation. Tricuspid systolic velocities suggests peak right ventricular systolic pressure of 43 mmHg, consistent with mild to moderate pulmonary hypertension.
--- NOTE | 2018-12-12 11:34 | NUR ---
*-* INSURANCE *-* UPDATED CLINICALS AND REVIEWS HAVE BEEN FAXED TO: [employer] NCM: JULIO CÉSAR P- [phone] [phone]
--- NOTE | 2018-12-12 11:53 | Cardiac Electrophysiology PN ---
Assessment/Plan Assessment/Plan 1. Hemoptysis and elevated D-dimer due to bilateral pulmonary emboli confirmed by the chest CT. On Eliquis per Dr. Porter. 2. Urinary tract infection. The patient is on ceftriaxone. Echocardiogram EF 65% 3. Questionable identity theft Subjective Subjective Alert in NAD. No CP or SOB Objective Last 24 Hour Vital Signs Date Time Temp Pulse Resp B/P (MAP) Pulse Ox O2 Delivery O2 Flow Rate FiO2 12/12/18 08:15 Room Air 12/12/18 08:00 96.9 90 18 122/74 (90) 97 12/12/18 08:00 77 12/12/18 07:54 70 18 Room Air 21 12/12/18 04:00 60 12/12/18 04:00 98.0 68 18 121/73 (89) 97 12/12/18 00:00 61 12/12/18 00:00 97.3 56 18 116/68 (84) 98 12/11/18 21:00 Room Air 12/11/18 20:00 97.0 76 18 140/99 (113) 98 12/11/18 20:00 80 18 Room Air 21 12/11/18 20:00 73 12/11/18 16:00 98.2 66 20 143/82 (102) 98 12/11/18 16:00 100 12/11/18 12:00 76 12/11/18 12:00 98.9 66 20 123/91 (102) 98 Intake and Output 12/11/18 12/12/18 19:00 07:00 Intake Total 252.269 ml Balance 252.269 ml IV Total 252.269 ml # Voids 3 2 Laboratory Tests Test 12/12/18 06:09 White Blood Count 4.8 K/UL (4.8-10.8) Red Blood Count 3.76 M/UL (4.20-5.40) L Hemoglobin 12.7 G/DL (12.0-16.0) Hematocrit 37.9 % (37.0-47.0) Mean Corpuscular Volume 101 FL (80-99) H Mean Corpuscular Hemoglobin 33.9 PG (27.0-31.0) H Mean Corpuscular Hemoglobin Concent 33.6 G/DL (32.0-36.0) Red Cell Distribution Width 12.0 % (11.6-14.8) Platelet Count 340 K/UL (150-450) Mean Platelet Volume 4.7 FL (6.5-10.1) L Neutrophils (%) (Auto) 37.6 % (45.0-75.0) L Lymphocytes (%) (Auto) 49.0 % (20.0-45.0) H Monocytes (%) (Auto) 9.3 % (1.0-10.0) Eosinophils (%) (Auto) 3.4 % (0.0-3.0) H Basophils (%) (Auto) 0.7 % (0.0-2.0) Prothrombin Time 10.9 SEC (9.30-11.50) Prothromb Time International Ratio 1.0 (0.9-1.1) Sodium Level 140 MMOL/L (136-145) Potassium Level 4.4 MMOL/L (3.5-5.1) Chloride Level 104 MMOL/L (98-107) Carbon Dioxide Level 30 MMOL/L (21-32) Anion Gap 6 mmol/L (5-15) Blood Urea Nitrogen 6 mg/dL (7-18) L Creatinine 0.8 MG/DL (0.55-1.30) Estimat Glomerular Filtration Rate > 60 mL/min (>60) Glucose Level 99 MG/DL (74-106) Calcium Level 9.7 MG/DL (8.5-10.1) Total Bilirubin 0.4 MG/DL (0.2-1.0) Aspartate Amino Transf (AST/SGOT) 16 U/L (15-37) Alanine Aminotransferase (ALT/SGPT) 17 U/L (12-78) Alkaline Phosphatase 77 U/L (46-116) Total Protein 7.6 G/DL (6.4-8.2) Albumin 3.1 G/DL (3.4-5.0) L Globulin 4.5 g/dL Albumin/Globulin Ratio 0.7 (1.0-2.7) L Microbiology Date/Time Source Procedure Growth Status 12/09/18 13:00 Nasal Nares MRSA Culture - Final NO METHICILLIN RESISTANT STAPH AUREUS... Complete 12/09/18 13:00 Rectum VRE Culture - Final NO VANCOMYCIN RESISTANT ENTEROCOCCUS ... Complete 12/09/18 13:00 Rectum - Final NO CARBAPENEM-RESISTANT ENTEROBACTERI... Complete Objective HEAD AND NECK: No JVD. No carotid bruits. LUNGS: Clear. CARDIOVASCULAR: Regular S1 and S2 with no gallop or murmur. ABDOMEN: Soft. EXTREMITIES: No pitting edema. Julio Alfaro MD December 12, 2018 11:53
[2018-12-12 12:00] VITALS: BP 110/75
--- NOTE | 2018-12-12 14:43 | General Progress Note ---
Assessment/Plan Status: progressing, unchanged Assessment/Plan: Assessment and Recs: # Bilateral pulmonary embolism as noted on imaging of cta, provoking factor doesn't appear to be consistent with any recent immobility, has never had clots , no hx of hypercoag disorder in the family, no history of recent travel either , duplex shows left leg dvt --> Left leg duplex shows Venous imaging reveals acute thrombus in the popliteal and one of the paired peroneal veins. Imaging also reveals patency of the common femoral, and calf veins (posterior tibial and anterior). Greater saphenous vein also within normal limits. --> tumor markers have been reviewed, ca19.9, cea, afp are wnl --> as an outpatient can f/u in the office and obtain cancer screening and ct imaging as well to r/o malignancy --> at this time, recommend anticoag for total of 3 months --> continue eliquis as an outpatient # Anemia of chronic disease due to underlying chronic medical issues, multifactorial --> Anemia workup has been ordered, rule out gi bleed --> no evidence of iron deficiency --> No evidence of hemolysis is noted, peripheral smear has been reviewed --> hgb goal is >7 # Urinary tract infection --> s/p antibiotics that have been started # Marijuana use as per utox # Psych disorder as per psych # Questionable identity theft The timing of this note does not necessarily reflect the time of the patient was seen. Greatly appreciate consultation! Subjective Constitutional: Denies: no symptoms, chills, diaphoresis, fever, malaise, weakness, other Cardiovascular: Denies: no symptoms, chest pain, edema, irregular heart rate, lightheadedness, palpitations, syncope, other Respiratory: Denies: no symptoms, cough, orthopnea, shortness of breath, SOB with excertion, SOB at rest, sputum, stridor, wheezing, other Gastrointestinal/Abdominal: Denies: no symptoms, abdomen distended, abdominal pain, black stools, tarry stools, blood in stool, constipated, diarrhea, difficulty swallowing, nausea, poor appetite, poor fluid intake, rectal bleeding , vomiting, other Genitourinary: Denies: no symptoms, burning, discharge, frequency, flank pain, hematuria, incontinence, pain, urgency, other Neurologic/Psychiatric: Denies: no symptoms, anxiety, depressed, emotional problems, headache, numbness, paresthesia, pre-existing deficit, seizure, tingling, tremors, weakness, other Endocrine: Denies: no symptoms, excessive sweating, flushing, intolerance to cold, intolerance to heat, increased hunger, increased thirst, increased urine, unexplained weight gain, unexplained weight loss, other Allergies: Coded Allergies: MORPHINE (Verified Allergy, Unknown, 12/09/18) Subjective 12/11: no events have been noted, on heparin and coumadin, inr goal 2-3 12/12: has been on eliquis since yesterday, dw Dr. Porter and reviewed notes of Dr. Alfaro Objective Last 24 Hour Vital Signs Date Time Temp Pulse Resp B/P (MAP) Pulse Ox O2 Delivery O2 Flow Rate FiO2 12/12/18 08:15 Room Air 12/12/18 08:00 96.9 90 18 122/74 (90) 97 12/12/18 08:00 77 12/12/18 07:54 70 18 Room Air 21 12/12/18 04:00 60 12/12/18 04:00 98.0 68 18 121/73 (89) 97 12/12/18 00:00 61 12/12/18 00:00 97.3 56 18 116/68 (84) 98 12/11/18 21:00 Room Air 12/11/18 20:00 97.0 76 18 140/99 (113) 98 12/11/18 20:00 80 18 Room Air 21 12/11/18 20:00 73 12/11/18 16:00 98.2 66 20 143/82 (102) 98 12/11/18 16:00 100 Intake and Output 12/11/18 12/12/18 19:00 07:00 Intake Total 252.269 ml Balance 252.269 ml IV Total 252.269 ml # Voids 3 2 Laboratory Tests 12/12/18 06:09: White Blood Count 4.8, Red Blood Count 3.76L, Hemoglobin 12.7, Hematocrit 37.9, Mean Corpuscular Volume 101H, Mean Corpuscular Hemoglobin 33.9H, Mean Corpuscular Hemoglobin Concent 33.6, Red Cell Distribution Width 12.0, Platelet Count 340, Mean Platelet Volume 4.7L, Neutrophils (%) (Auto) 37.6L, Lymphocytes (%) (Auto) 49.0H, Monocytes (%) (Auto) 9.3, Eosinophils (%) (Auto) 3.4H, Basophils (%) (Auto) 0.7, Prothrombin Time 10.9, Prothromb Time International Ratio 1.0, Sodium Level 140, Potassium Level 4.4, Chloride Level 104, Carbon Dioxide Level 30, Anion Gap 6, Blood Urea Nitrogen 6L, Creatinine 0.8, Estimat Glomerular Filtration Rate > 60, Glucose Level 99, Calcium Level 9.7, Total Bilirubin 0.4, Aspartate Amino Transf (AST/SGOT) 16, Alanine Aminotransferase ( ALT/SGPT) 17, Alkaline Phosphatase 77, Total Protein 7.6, Albumin 3.1L, Globulin 4.5, Albumin/Globulin Ratio 0.7L Height (Feet): 6 Weight (Pounds): 158 Objective Sp02 EP Interpretation: reviewed, normal General Appearance: normal inspection, well appearing, GCS 15 Head: atraumatic ENT: normal ENT inspection, hearing grossly normal Neck: normal inspection, full range of motion, supple, no bony tend Respiratory: normal inspection, lungs clear, normal breath sounds Cardiovascular: regular rate, rhythm, no edema Gastrointestinal: normal inspection, normal BSs Genitourinary: no CVA tenderness Msk: normal inspection, back normal, nml rom Neurologic: normal inspection, alert, oriented x3, responsive Psychiatric: normal inspection, judgement/insight normal Skin: normal inspection, normal color, no rash Arnold Zuniga MD December 12, 2018 14:43
[2018-12-12 16:00] VITALS: BP 108/69
--- NOTE | 2018-12-12 19:10 | NUR ---
NURSE NOTES: Report received VIVIANE Ortiz. Observed pt sitting on the bed. A/O x4, denies any pain at this time. SR with security monitor. On room air with no signs of distress. R FA 22G, SL, Bed in the lowest position. Side rails up x2. Call light within reach. Will continue to monitor.
--- NOTE | 2018-12-12 19:32 | NUR ---
HAND-OFF: Report given to VIVIANE Garcia.
[2018-12-12 20:00] VITALS: BP 120/83
--- NOTE | 2018-12-12 20:08 | NUR ---
NURSE NOTES: Noted pt pacing down hallways, stated that, "I am just taking a walk." Pt appears calm and listening to cell phone. Will continue to monitor.
--- NOTE | 2018-12-12 20:42 | General Progress Note ---
Assessment/Plan Problem List: (1) Bilateral pulmonary embolism ICD Codes: I26.99 - Other pulmonary embolism without acute cor pulmonale SNOMED: 60393387 (2) DVT (deep venous thrombosis) ICD Codes: I82.409 - Acute embolism and thrombosis of unspecified deep veins of unspecified lower extremity SNOMED: 949067662 (3) Urinary tract infection ICD Codes: N39.0 - Urinary tract infection, site not specified SNOMED: 87167564 Status: progressing, unchanged Assessment/Plan: uti is improving no bleeding clinically improving pulmonary embolism dvt anticoagulant per heme/onc Subjective ROS Limited/Unobtainable: Yes Allergies: Coded Allergies: MORPHINE (Verified Allergy, Unknown, 12/09/18) Objective Last 24 Hour Vital Signs Date Time Temp Pulse Resp B/P (MAP) Pulse Ox O2 Delivery O2 Flow Rate FiO2 12/12/18 20:14 81 18 Room Air 21 12/12/18 16:00 67 12/12/18 16:00 98.2 73 18 108/69 (82) 99 12/12/18 12:00 76 12/12/18 12:00 97.9 72 18 110/75 (87) 100 12/12/18 08:15 Room Air 12/12/18 08:00 96.9 90 18 122/74 (90) 97 12/12/18 08:00 77 12/12/18 07:54 70 18 Room Air 21 12/12/18 04:00 60 12/12/18 04:00 98.0 68 18 121/73 (89) 97 12/12/18 00:00 61 12/12/18 00:00 97.3 56 18 116/68 (84) 98 12/11/18 21:00 Room Air Intake and Output 12/11/18 12/12/18 18:59 06:59 Intake Total 286.430 ml Balance 286.430 ml IV Total 286.430 ml # Voids 3 2 Laboratory Tests 12/12/18 06:09: White Blood Count 4.8, Red Blood Count 3.76L, Hemoglobin 12.7, Hematocrit 37.9, Mean Corpuscular Volume 101H, Mean Corpuscular Hemoglobin 33.9H, Mean Corpuscular Hemoglobin Concent 33.6, Red Cell Distribution Width 12.0, Platelet Count 340, Mean Platelet Volume 4.7L, Neutrophils (%) (Auto) 37.6L, Lymphocytes (%) (Auto) 49.0H, Monocytes (%) (Auto) 9.3, Eosinophils (%) (Auto) 3.4H, Basophils (%) (Auto) 0.7, Prothrombin Time 10.9, Prothromb Time International Ratio 1.0, Sodium Level 140, Potassium Level 4.4, Chloride Level 104, Carbon Dioxide Level 30, Anion Gap 6, Blood Urea Nitrogen 6L, Creatinine 0.8, Estimat Glomerular Filtration Rate > 60, Glucose Level 99, Calcium Level 9.7, Total Bilirubin 0.4, Aspartate Amino Transf (AST/SGOT) 16, Alanine Aminotransferase ( ALT/SGPT) 17, Alkaline Phosphatase 77, Total Protein 7.6, Albumin 3.1L, Globulin 4.5, Albumin/Globulin Ratio 0.7L Height (Feet): 6 Weight (Pounds): 158 Neck: supple Cardiovascular: normal rate Respiratory/Chest: lungs clear Abdomen: soft Al Jauregui MD December 12, 2018 20:42
--- NOTE | 2018-12-12 23:45 | Psych Consult Progress Note ---
Psychiatry Progress Note Psychiatry Progress Note Subjective cont to speak about the identity theft the pt has poor insight Medications Current Medications Medications (Trade) Dose Ordered Sig/Lucero Route PRN Reason Start Time Stop Time Status Last Admin Dose Admin Albuterol/ Ipratropium (Albuterol/ Ipratropium) 3 ml Q4H PRN HHN Shortness of Breath 12/09/18 21:45 12/14/18 21:44 Apixaban (Eliquis) 5 mg BID ORAL 12/11/18 14:43 01/10/19 14:42 12/12/18 17:34 Guaifenesin/ Dextromethorphan (Robitussin DM Syrup) 10 ml Q8H PRN ORAL For Cough 12/11/18 19:15 01/10/19 19:14 Lorazepam (Ativan) 2 mg Q6H PRN ORAL For Anxiety 12/11/18 22:00 12/18/18 21:59 Nicotine (Nicoderm) 1 patch Q24H TDERMAL 12/10/18 14:00 01/09/19 13:59 12/12/18 14:47 Allergies: Coded Allergies: MORPHINE (Verified Allergy, Unknown, 12/09/18) Objective Data Height (Feet): 6 Weight (Pounds): 158 General Appearance: WD/WN, alert, moderate distress Appearance: disheveled Behavior Mannerisms: good eye contact Mental Status Exam - Affect: blunted Mental Status Exam - Mood: irritable, anxious, agitated Mental Status Exam - Thought P: goal-directed Mental Status Exam - Suicidal: not present Assessment/Plan Problem List: (1) Cannabis abuse ICD Codes: F12.10 - Cannabis abuse, uncomplicated SNOMED: 32925872 Status: progressing, unchanged Assessment/Plan: the pt is reluctant to take any meds provided michael/Breann Santoyo MD December 12, 2018 23:45
[2018-12-13] VITALS: BP 125/78
--- NOTE | 2018-12-13 | NUR ---
NURSE NOTES: Observed pt sleeping on the bed. No acute distress noted at this time. Will continue to monitor.
[2018-12-13 04:00] VITALS: BP 120/69
--- NOTE | 2018-12-13 07:35 | NUR ---
HAND-OFF: Report given to VIVIANE Jiang. No acute distress ntoed at this time.
--- NOTE | 2018-12-13 07:42 | NUR ---
NURSE NOTES: Received report from Igor Goodman. pt is sitting up in bed having breakfast. bed is in lowest position, side rails up X2, and call light is within reach. Will continue monitor.
[2018-12-13 07:52] LABS: INR 1.1 (0.9-1.1)
[2018-12-13 08:00] VITALS: BP 120/90
[2018-12-13] MEDS: Eliquis 2.5mg tablet ORAL SCH ×2 (08:08→17:35)
--- NOTE | 2018-12-13 09:04 | General Progress Note ---
Assessment/Plan Problem List: (1) Bilateral pulmonary embolism ICD Codes: I26.99 - Other pulmonary embolism without acute cor pulmonale SNOMED: 17153932 (2) DVT (deep venous thrombosis) ICD Codes: I82.409 - Acute embolism and thrombosis of unspecified deep veins of unspecified lower extremity SNOMED: 356314295 (3) Urinary tract infection ICD Codes: N39.0 - Urinary tract infection, site not specified SNOMED: 27817695 Status: progressing, unchanged Assessment/Plan: uti is improving no bleeding pulmonary embolism dvt Subjective ROS Limited/Unobtainable: Yes Allergies: Coded Allergies: MORPHINE (Verified Allergy, Unknown, 12/09/18) Objective Last 24 Hour Vital Signs Date Time Temp Pulse Resp B/P (MAP) Pulse Ox O2 Delivery O2 Flow Rate FiO2 12/13/18 08:10 83 18 Room Air 21 12/13/18 04:00 98.2 55 20 120/69 (86) 99 12/13/18 04:00 58 12/13/18 00:00 59 12/13/18 00:00 98.0 86 20 125/78 (94) 99 12/12/18 21:00 Room Air Room Air 12/12/18 20:14 81 18 Room Air 21 12/12/18 20:00 98.0 64 18 120/83 (95) 98 12/12/18 20:00 85 12/12/18 16:00 67 12/12/18 16:00 98.2 73 18 108/69 (82) 99 12/12/18 12:00 76 12/12/18 12:00 97.9 72 18 110/75 (87) 100 Intake and Output 12/12/18 12/13/18 19:00 07:00 Intake Total 1030 ml Balance 1030 ml Intake Oral 1030 ml # Voids 5 2 # Bowel Movements 1 Laboratory Tests 12/13/18 06:12: Prothrombin Time 11.4, Prothromb Time International Ratio 1.1 Height (Feet): 6 Weight (Pounds): 158 Neck: supple Cardiovascular: normal rate Respiratory/Chest: lungs clear Abdomen: soft Al Jauregui MD December 13, 2018 09:04
[2018-12-13 12:00] VITALS: BP 125/75
--- NOTE | 2018-12-13 15:18 | Cardiac Electrophysiology PN ---
Assessment/Plan Assessment/Plan 1. Bilateral pulmonary emboli confirmed by the chest CT. On Eliquis per Dr. Porter. 2. Urinary tract infection. The patient is on ceftriaxone. Echocardiogram EF 65% 3. Questionable identity theft Subjective Subjective Alert in NAD. No CP or SOB. On Eliquis 5 bid for PE Objective Last 24 Hour Vital Signs Date Time Temp Pulse Resp B/P (MAP) Pulse Ox O2 Delivery O2 Flow Rate FiO2 12/13/18 12:00 105 12/13/18 12:00 98.5 66 20 125/75 (92) 96 12/13/18 09:00 Room Air Room Air 12/13/18 08:10 83 18 Room Air 21 12/13/18 08:00 61 12/13/18 08:00 98.8 80 20 120/90 (100) 98 12/13/18 04:00 98.2 55 20 120/69 (86) 99 12/13/18 04:00 58 12/13/18 00:00 59 12/13/18 00:00 98.0 86 20 125/78 (94) 99 12/12/18 21:00 Room Air Room Air 12/12/18 20:14 81 18 Room Air 21 12/12/18 20:00 98.0 64 18 120/83 (95) 98 12/12/18 20:00 85 12/12/18 16:00 67 12/12/18 16:00 98.2 73 18 108/69 (82) 99 Intake and Output 12/12/18 12/13/18 19:00 07:00 Intake Total 1030 ml Balance 1030 ml Intake Oral 1030 ml # Voids 5 2 # Bowel Movements 1 Laboratory Tests Test 12/13/18 06:12 Prothrombin Time 11.4 SEC (9.30-11.50) Prothromb Time International Ratio 1.1 (0.9-1.1) Objective HEAD AND NECK: No JVD. LUNGS: Clear. CARDIOVASCULAR: Regular S1 and S2 with no gallop or murmur. ABDOMEN: Soft. EXTREMITIES: No pitting edema. Julio Alfaro MD December 13, 2018 15:18
[2018-12-13 16:00] VITALS: BP 120/71
--- NOTE | 2018-12-13 19:31 | NUR ---
HAND-OFF: Report given to VIVIANE Armendariz. Plan of care endorsed.
[2018-12-13 20:00] VITALS: BP 120/72
[2018-12-14] VITALS: BP 119/56
[2018-12-14 04:00] VITALS: BP 110/56
--- NOTE | 2018-12-14 07:25 | NUR ---
NURSE NOTES: Received pt from VIVIANE Armendariz in stable condition with no cardiopulmonary distress noted. Pt is awake, AAOx4, on RA. No skin alterations noted.Pt is ambulatory and uses bathroom independently. R FA 22g IV noted. Bed is in lowest position with side rails up x 2. Call light within reach. Will continue to monitor pt.
--- NOTE | 2018-12-14 07:43 | NUR ---
HAND-OFF: Report given to VIVIANE Mora.
[2018-12-14 08:00] VITALS: BP 109/67
[2018-12-14] MEDS: Eliquis 2.5mg tablet ORAL SCH (08:15)
--- NOTE | 2018-12-14 11:07 | Infectious Diseases Prog Note ---
Assessment/Plan Assessment/Plan IMPRESSION: Pyuria, doubt urinary tract infection. - urine culture; GPC< 10 K chronic obstructive pulmonary disease, active smoker, DVT of left leg, bilateral pulmonary emboli, hypoxemia. RECOMMENDATION: Observe off antibiotic continue Nicotine patch & anticoagulation Subjective ROS Limited/Unobtainable: No Constitutional: Reports: no symptoms Respiratory: Reports: no symptoms Cardiovascular: Reports: no symptoms Gastrointestinal/Abdominal: Reports: no symptoms Genitourinary: Reports: no symptoms Allergies: Coded Allergies: MORPHINE (Verified Allergy, Unknown, 12/09/18) Objective Vital Signs Last 24 Hour Vital Signs Date Time Temp Pulse Resp B/P (MAP) Pulse Ox O2 Delivery O2 Flow Rate FiO2 12/14/18 08:00 97.5 74 18 109/67 (81) 96 12/14/18 07:31 62 18 Room Air 21 12/14/18 04:00 59 12/14/18 04:00 98.0 58 20 110/56 (74) 99 12/14/18 00:00 54 12/14/18 00:00 98.3 55 18 119/56 (77) 96 12/13/18 21:00 Room Air Room Air 12/13/18 20:00 97.5 60 20 120/72 (88) 99 12/13/18 20:00 66 12/13/18 20:00 70 18 Room Air 21 12/13/18 16:00 98.3 61 20 120/71 (87) 100 12/13/18 16:00 66 12/13/18 12:00 105 12/13/18 12:00 98.5 66 20 125/75 (92) 96 Height (Feet): 6 Weight (Pounds): 158 General Appearance: no acute distress HEENT: mucous membranes moist Respiratory/Chest: lungs clear Cardiovascular: normal rate Abdomen: soft, non tender Extremities: no edema Neurologic/Psychiatric: alert, oriented x 3, responsive Current Medications Medications (Trade) Dose Ordered Sig/Lucero Route PRN Reason Start Time Stop Time Status Last Admin Dose Admin Albuterol/ Ipratropium (Albuterol/ Ipratropium) 3 ml Q4H PRN HHN Shortness of Breath 12/09/18 21:45 12/14/18 21:44 Apixaban (Eliquis) 5 mg BID ORAL 12/11/18 14:43 01/10/19 14:42 12/14/18 08:15 Guaifenesin/ Dextromethorphan (Robitussin DM Syrup) 10 ml Q8H PRN ORAL For Cough 12/11/18 19:15 01/10/19 19:14 Lorazepam (Ativan) 2 mg Q6H PRN ORAL For Anxiety 12/11/18 22:00 12/18/18 21:59 Nicotine (Nicoderm) 1 patch Q24H TDERMAL 12/10/18 14:00 01/09/19 13:59 12/13/18 13:57 Chris Prince MD December 14, 2018 11:07
--- NOTE | 2018-12-14 11:54 | General Progress Note ---
Assessment/Plan Status: progressing, unchanged Assessment/Plan: Assessment and Recs: # Bilateral pulmonary embolism as noted on imaging of cta, provoking factor doesn't appear to be consistent with any recent immobility, has never had clots , no hx of hypercoag disorder in the family, no history of recent travel either , duplex shows left leg dvt --> Left leg duplex shows Venous imaging reveals acute thrombus in the popliteal and one of the paired peroneal veins. Imaging also reveals patency of the common femoral, and calf veins (posterior tibial and anterior). Greater saphenous vein also within normal limits. --> tumor markers have been reviewed, ca19.9, cea, afp are wnl --> as an outpatient can f/u in the office and obtain cancer screening and ct imaging as well to r/o malignancy --> at this time, recommend anticoag for total of 3 months --> continue eliquis as an outpatient, monitor for bleed given anemia # Anemia of chronic disease due to underlying chronic medical issues, multifactorial --> Anemia workup has been ordered, rule out gi bleed --> no evidence of iron deficiency --> No evidence of hemolysis is noted, peripheral smear has been reviewed --> hgb goal is >7 # Urinary tract infection --> s/p antibiotics from earlier in admission --> currently off abx # Marijuana use as per utox # Psych disorder as per psych # Questionable identity theft The timing of this note does not necessarily reflect the time of the patient was seen. Greatly appreciate consultation! Subjective HEENT: Denies: no symptoms, eye pain, blurred vision, tearing, double vision, ear pain, ear discharge, nose pain, nose congestion, throat pain, throat swelling, mouth pain, mouth swelling, other Cardiovascular: Denies: no symptoms, chest pain, edema, irregular heart rate, lightheadedness, palpitations, syncope, other Respiratory: Denies: no symptoms, cough, orthopnea, shortness of breath, SOB with excertion, SOB at rest, sputum, stridor, wheezing, other Gastrointestinal/Abdominal: Denies: no symptoms, abdomen distended, abdominal pain, black stools, tarry stools, blood in stool, constipated, diarrhea, difficulty swallowing, nausea, poor appetite, poor fluid intake, rectal bleeding , vomiting, other Neurologic/Psychiatric: Denies: no symptoms, anxiety, depressed, emotional problems, headache, numbness, paresthesia, pre-existing deficit, seizure, tingling, tremors, weakness, other Endocrine: Denies: no symptoms, excessive sweating, flushing, intolerance to cold, intolerance to heat, increased hunger, increased thirst, increased urine, unexplained weight gain, unexplained weight loss, other Allergies: Coded Allergies: MORPHINE (Verified Allergy, Unknown, 12/09/18) Subjective 12/11: no events have been noted, on heparin and coumadin, inr goal 2-3 12/12: has been on eliquis since yesterday, dw Dr. Porter and reviewed notes of Dr. Alfaro 12/14: no events, continue on eliquis, no bleeding reported Objective Last 24 Hour Vital Signs Date Time Temp Pulse Resp B/P (MAP) Pulse Ox O2 Delivery O2 Flow Rate FiO2 12/14/18 08:00 97.5 74 18 109/67 (81) 96 12/14/18 07:31 62 18 Room Air 21 12/14/18 04:00 59 12/14/18 04:00 98.0 58 20 110/56 (74) 99 12/14/18 00:00 54 12/14/18 00:00 98.3 55 18 119/56 (77) 96 12/13/18 21:00 Room Air Room Air 12/13/18 20:00 97.5 60 20 120/72 (88) 99 12/13/18 20:00 66 12/13/18 20:00 70 18 Room Air 21 12/13/18 16:00 98.3 61 20 120/71 (87) 100 12/13/18 16:00 66 12/13/18 12:00 105 12/13/18 12:00 98.5 66 20 125/75 (92) 96 Intake and Output 12/13/18 12/14/18 19:00 07:00 Intake Total 1110 ml Balance 1110 ml Intake Oral 1110 ml # Voids 5 2 Height (Feet): 6 Weight (Pounds): 158 Objective Sp02 EP Interpretation: reviewed, normal General Appearance: normal inspection, well appearing, GCS 15 Head: atraumatic ENT: normal ENT inspection, hearing grossly normal Neck: normal inspection, full range of motion, supple, no bony tend Respiratory: normal inspection, lungs clear, normal breath sounds Cardiovascular: regular rate, rhythm, no edema Gastrointestinal: normal inspection, normal BSs Genitourinary: no CVA tenderness Msk: normal inspection, back normal, nml rom Neurologic: normal inspection, alert, oriented x3, responsive Psychiatric: normal inspection, judgement/insight normal Skin: normal inspection, normal color, no rash Arnold Zuniga MD December 14, 2018 11:54
[2018-12-14 12:00] VITALS: BP 132/84
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
== END 2018-12-14 14:23 | disposition left against medical advice (07) | DRG 134 ==
LOC: EMR 10:50 → 2E 12:55 → EDBEDREQ 13:30
DX: I26.99 Other pulmonary embolism without acute cor pulmonale (principal); J43.9 Emphysema, unspecified; I82.432 Acute embolism and thrombosis of left popliteal vein; I82.890 Acute embolism and thrombosis of other specified veins; R09.02 Hypoxemia; D63.8 Anemia in other chronic diseases classified elsewhere; N39.0 Urinary tract infection, site not specified; J98.11 Atelectasis; F17.290 Nicotine dependence, other tobacco product, uncomplicated; Z59.0 Homelessness; F41.9 Anxiety disorder, unspecified; Z88.6 Allergy status to analgesic agent; F99 Mental disorder, not otherwise specified; F12.10 Cannabis abuse, uncomplicated
CPT/HCPCS: 36415; 36600; 71275; 80053; 80061; 80307; 81001; 82378; 82803; 83880; 84484; 85007; 85025; 85379; 85610; 85730; 86300; 86304; 87081; 87086; 93005; 93306; 93970; 94664; 96365; 96375; 96376; 99285

== ENCOUNTER 2019-02-16 21:21 | Emergency (ER) | payer MEDICAID ==
[~2019-02-16] VITALS: Ht 172.7 cm; Wt 72.6 kg
--- NOTE | 2019-02-16 21:27 | NUR ---
called out no answer
[2019-02-16 21:35] VITALS: BP 130/80
--- NOTE | 2019-02-16 21:35 | NUR ---
ED Nurse Note: Pt ambulated to ED from home, c/o 10/10 pain in R armpit r/t frequent boils. PT VSS
[2019-02-16] MEDS ORDERED: ELIQUIS5 MG PO (21:36)
[2019-02-16] MEDS ORDERED: BACTRIM DS TAB1 EAC1 ORAL (21:51)
[2019-02-16] MEDS ORDERED: CEPHALEXIN500 MG ORAL (21:51)
--- NOTE | 2019-02-16 21:53 | Emergency Room Report ---
History of Present Illness General Chief Complaint: Skin Rash/Abscess Present Illness HPI Patient is a 53-year-old female who presents after increased right-sided axillary pain. Patient reports of increased pain to the right armpit for 1 day. He she reports having some increased drainage to the area. She also reports having a lesion to her right lower extremity. He is some pain medication Allergies: Coded Allergies: MORPHINE (Verified Allergy, Unknown, 12/09/18) Patient History Past Medical History: see triage record Reviewed Nursing Documentation: PMH: Agreed; PSxH: Agreed Nursing Documentation-PMH Hx Cardiac Problems: Yes Hx Hypertension: Yes Hx Asthma: Yes Hx Cancer: No Hx Gastrointestinal Problems: No Hx Neurological Problems: No Review of Systems All Other Systems: negative except mentioned in HPI Physical Exam Vital Signs Date Time Temp Pulse Resp B/P (MAP) Pulse Ox O2 Delivery O2 Flow Rate FiO2 02/16/19 21:32 98.1 72 16 130/80 (97) 98 Room Air General Appearance: well appearing, no apparent distress, alert, GCS 15, non- toxic Head: normocephalic, atraumatic ENT: hearing grossly normal, normal voice Neck: full range of motion, supple Respiratory: no respiratory distress, speaking full sentences Cardiovascular #1: normal inspection Gastrointestinal: normal inspection, non tender Musculoskeletal: no calf tenderness Neurologic: normal inspection, alert, oriented x3, responsive, normal gait Psychiatric: mood/affect normal Skin: no rash Medical Decision Making Diagnostic Impression: Primary Impression: Axillary abscess Last Vital Signs Date Time Temp Pulse Resp B/P (MAP) Pulse Ox O2 Delivery O2 Flow Rate FiO2 02/16/19 21:32 98.1 72 16 130/80 (97) 98 Room Air Disposition: HOME, SELF-CARE Condition: Stable Scripts Trimethoprim/Sulfamethoxazole 160/800* (BACTRIM DS TABLET*) 1 Each Tablet 1 TAB ORAL Q12H, #14 TAB 0 Refills Prov: Asaf High MD 02/16/19 Cephalexin* (KEFLEX*) 500 Mg Capsule 500 MG ORAL EVERY 6 HOURS, #28 CAP Prov: Asaf High MD 02/16/19 Patient Instructions: Abscess Additional Instructions: Recheck wound in 2-3 days. Asaf High MD Feb 16, 2019 21:53
[2019-02-16] MEDS ORDERED: Bactrim-DS 1 tab ORAL ONE (22:00)
[2019-02-16] MEDS ORDERED: Cephalexin 500mg cap ORAL ONE (22:00)
--- NOTE | 2019-02-16 22:15 | NUR ---
ER DISCHARGE NOTE: Patient is cleared to be discharged per ERMD, pt is aox4, on room air, with stable vital signs. pt was given dc and prescription instructions, pt was able to verbalize understanding, pt id band removed. pt is able to ambulate with steady gait. pt took all belongings.
== END 2019-02-16 22:15 | disposition home or self-care (01) ==
LOC: EMR 22:00
DX: L02.411 Cutaneous abscess of right axilla (principal); I10 Essential (primary) hypertension; Z88.6 Allergy status to analgesic agent
CPT/HCPCS: 99282